=== PATIENT | female | born 1955 | race Caucasian/White ===

== ENCOUNTER → 2018-05-30 09:20 | Outpatient (CLI) | payer MEDICARE, SELFPAY ==
[2018-05-30 10:46] LABS: Vitamin B12 708 pg/mL (211-911); Vitamin D,25 Hydroxy 43.8 ng/mL (29.95-100.01)
[2018-05-30 11:05] LABS: ALB/GLOB Ratio 1.3 RATIO (0.9-2.4); AST(SGOT) 28 U/L (15-37); Alanine Aminotransfer ALT/SGPT 40 U/L (13-56); Albumin, Serum 4.1 g/dL (3.2-5.0); Alkaline Phosphatase 98 U/L (45-117); Anion Gap 7 (5-15); BUN 13 mg/dL (7-18); BUN/Creat Ratio 20.7 RATIO (10-20); Calcium,Total 8.8 mg/dL (8.5-10.1); Chloride 105 mmol/L (98-107); Cholesterol 215 mg/dL (200); Creatinine, Serum 0.63 mg/dL (0.55-1.02); EST Glomerular Filtration Rate 102 mL/min (>60); Est Glom Filt Rate - Afr Amer 124 mL/min (>60); Globulin 3.2 g/dL (2.2-4.2); Glucose 107 mg/dL (74-106); High Density Lipoprotein 44 mg/dL; Potassium 4.1 mmol/L (3.5-5.1); Protein, Total 7.3 g/dL (6.4-8.2); Sodium Level 140 mmol/L (136-145); Thyroid Stim Hormone (TSH) 2.15 uIU/mL (0.358-3.74); Triglycerides 347 mg/dL; Very Low Density Lipoprotein 69 mg/dL (5-40)
== END ==
PROVIDERS: Family Provider Family Medicine; PCP Family Medicine; Referring Provider Family Medicine; Visit Provider Family Medicine
DX: I10 Essential (primary) hypertension (principal); R53.83 Other fatigue; Z13.21 Encounter for screening for nutritional disorder
CPT/HCPCS: 36415; 80053; 80061; 82306; 82607; 84443

== ENCOUNTER → 2019-03-12 08:52 | Outpatient (CLI) | payer OTHER, SELFPAY ==
[2019-03-12 10:15] LABS: Absolute Lymphocyte Count 1.88 X10^3/uL (0.83-4.51); Absolute Neutrophil Count 6.1 X10^3/uL (2.0-7.7); Basophil# 0.04 X10^3/uL; Basophil% 0.4 % (0-1); Eosinophil# 0.42 X10^3/uL; Eosinophils% 4.7 % (0-5); Erythrocyte Sedimentation Rate 11 mm/hr (0-30); Hematocrit 42.8 % (37-47); Hemoglobin 14.4 g/dL (12.0-15.0); Lymphocyte # 1.88 X10^3/ul (4.0); Mean Corp Hgb Conc 33.6 g/dL (32-36); Mean Corpuscular Hgb 30.9 pg (27.0-32.0); Mean Corpuscular Volume 91.8 fL (81-99); Mean Platelet Vol. 9.8 fl (6.2-12.0); Monocyte# 0.46 X10^3/uL; Monocyte% 5.1 % (0-10); NRBC Flagged by Analyzer 0 % (0-5); Neutrophil # 6.09 X10^3/uL (2.7-7.7); Platelet Count 302 K/mm3 (150-450); RBC Distribution Width CV 13.2 % (11.6-14.6); RBC Distribution Width SD 44.9 fl (35.1-43.9); Red Blood Count 4.66 M/mm3 (4.2-5.4)
[2019-03-12 10:35] LABS: ALB/GLOB Ratio 1.1 RATIO (0.9-2.4); AST(SGOT) 40 U/L (15-37); Alanine Aminotransfer ALT/SGPT 54 U/L (13-56); Alkaline Phosphatase 98 U/L (45-117); Anion Gap 4 (5-15); BUN 12 mg/dL (7-18); BUN/Creat Ratio 16.5 RATIO (10-20); Calcium,Total 9.3 mg/dL (8.5-10.1); Chloride 104 mmol/L (98-107); Creatinine, Serum 0.73 mg/dL (0.55-1.02); EST Glomerular Filtration Rate 86 mL/min (>60); Est Glom Filt Rate - Afr Amer 104 mL/min (>60); Globulin 3.7 g/dL (2.2-4.2); Glucose 108 mg/dL (74-106); Potassium 3.9 mmol/L (3.5-5.1); Protein, Total 7.7 g/dL (6.4-8.2); Sodium Level 138 mmol/L (136-145); Thyroid Stim Hormone (TSH) 2.14 uIU/mL (0.358-3.74)
[2019-03-13 16:08] LABS: Endomysial Antibody IgA Negative (Negative); Immunoglobulin A 240 mg/dL (87-352)
[2019-03-13 18:34] LABS: Deamidated Gliadin IgA 5 units (0-19); Deamidated Gliadin IgG 2 units (0-19); H. Pylori Antibody (IgG) 4.17 (0.00-0.79); t-Transglutaminase IgA <2 U/mL (0-3)
[2019-03-15 03:06] LABS: Beef <0.10 kU/L (Class 0); Corn <0.10 kU/L (Class 0); Egg, Whole <0.10 kU/L (Class 0); Milk (Cow) <0.10 kU/L (Class 0); Peanut <0.10 kU/L (Class 0); Pork <0.10 kU/L (Class 0); Soybean <0.10 kU/L (Class 0); Wheat <0.10 kU/L (Class 0)
[2019-03-15 08:09] LABS: Chocolate <0.10 kU/L (Class 0)
== END ==
PROVIDERS: Family Provider Family Medicine; PCP Family Medicine; Visit Provider Family Medicine
DX: K58.9 Irritable bowel syndrome, unspecified (principal); R10.13 Epigastric pain
CPT/HCPCS: 36415; 80053; 82784; 83516; 84443; 85025; 85652; 86003; 86005; 86255; 86677

== ENCOUNTER → 2019-04-02 09:26 | Outpatient (CLI) | payer OTHER, SELFPAY ==
--- NOTE | 2019-04-02 09:34 | RAD_ITS ---
STUDY: X-RAY - RIGHT KNEE REASON FOR EXAM: Female, 63 years old. RIGHT KNEE PAIN AND TROUBLE AMBULATING, PAIN IS WORSE WITH WEIGHTBEARING TECHNIQUE: 4 view(s) of the knee. COMPARISON: None. FINDINGS: Normal visualized distal femur. Normal visualized proximal tibia and fibula. Normal proximal tibiofibular articulation. There is no demonstrated fracture. Normal medial femorotibial compartment. Normal lateral femorotibial compartment. Normal patellofemoral articulation. There is no demonstrated joint effusion. The soft tissue structures are unremarkable. RAD/Knee 4 or More Views IMPRESSION: Normal x-ray examination of the knee. Electronically Signed: Tanner Hoffman MD at 23:57 EST , Service support ,
== END ==
PROVIDERS: PCP Family Medicine; Referring Provider Nurse Practitioner Adult Health; Visit Provider Nurse Practitioner Adult Health
DX: M25.561 Pain in right knee (principal)
CPT/HCPCS: 73564

== ENCOUNTER → 2019-04-03 15:15 | Outpatient (CLI) | payer OTHER, SELFPAY ==
--- NOTE | 2019-04-03 15:31 | VDLE_ITS ---
Reason For Study: pain and swelling RIGHT GSV is normal. CFV is compressible, spontaneous, phasic, competent and demonstrates normal augmentation. FV is compressible, spontaneous, phasic, competent and demonstrates normal augmentation. POP V is compressible, spontaneous, phasic, competent and demonstrates normal augmentation. T/P Trunk is compressible. PTV is compressible. RT PerV is compressible. Hypoechoic area behind the knee measuring .98 x 1.79 cm in short. Area is nonvascular. Procedure Exam performed in department. The exam was diagnostic. A preliminary report was called and/or faxed to Dr. Moran. Interpretation Summary Deep veins of the right lower extremity are patent and compressible segmentally. There is no evidence of right lower extremity deep vein thrombosis. Valvular competence appears intact within the proximal deep venous system on the right . The right great saphenous vein appears patent and compressible segmentally. A non-vascular, hypoechoic structure is noted in the right popliteal space, measuring 0.98 cm x 1.79 cm. This probably represents a popliteal cyst. Clinical correlation is advised. Ordering Physician: Yaz Moran Performed By: Jarrett Vasquez RVT
[2019-04-03 16:17] LABS: Absolute Lymphocyte Count 2.33 X10^3/uL (0.83-4.51); Absolute Neutrophil Count 6.2 X10^3/uL (2.0-7.7); Basophil# 0.07 X10^3/uL; Basophil% 0.7 % (0-1); Eosinophils% 5.2 % (0-5); Hematocrit 41.8 % (37-47); Hemoglobin 14.1 g/dL (12.0-15.0); Lymphocyte # 2.33 X10^3/ul (4.0); Mean Corp Hgb Conc 33.7 g/dL (32-36); Mean Corpuscular Hgb 30.7 pg (27.0-32.0); Mean Corpuscular Volume 91.1 fL (81-99); Monocyte# 0.52 X10^3/uL; Monocyte% 5.4 % (0-10); NRBC Flagged by Analyzer 0 % (0-5); Neutrophil # 6.22 X10^3/uL (2.7-7.7); Neutrophil % 64.2 % (47-70); Platelet Count 303 K/mm3 (150-450); RBC Distribution Width CV 12.9 % (11.6-14.6); RBC Distribution Width SD 42.9 fl (35.1-43.9); Red Blood Count 4.59 M/mm3 (4.2-5.4); White Blood Count 9.7 K/mm3 (4.4-11.0)
[2019-04-03 16:43] LABS: ALB/GLOB Ratio 1.1 RATIO (0.9-2.4); AST(SGOT) 21 U/L (15-37); Alanine Aminotransfer ALT/SGPT 36 U/L (13-56); Alkaline Phosphatase 101 U/L (45-117); Anion Gap 1 (5-15); BUN 12 mg/dL (7-18); BUN/Creat Ratio 17.3 RATIO (10-20); Calcium,Total 9.7 mg/dL (8.5-10.1); Chloride 103 mmol/L (98-107); EST Glomerular Filtration Rate 91 mL/min (>60); Est Glom Filt Rate - Afr Amer 110 mL/min (>60); Globulin 3.7 g/dL (2.2-4.2); Glucose 99 mg/dL (74-106); Potassium 3.8 mmol/L (3.5-5.1); Protein, Total 7.7 g/dL (6.4-8.2); Sodium Level 138 mmol/L (136-145)
== END ==
PROVIDERS: Internal Medicine; PCP Family Medicine; Referring Provider Family Medicine; Visit Provider Family Medicine
DX: M79.661 Pain in right lower leg (principal); M79.89 Other specified soft tissue disorders
CPT/HCPCS: 36415; 80053; 85025; 93971

== ENCOUNTER → 2019-04-13 10:07 | Outpatient (CLI) | payer OTHER, SELFPAY | PROVIDERS: PCP Family Medicine; Referring Provider Family Medicine; Visit Provider Family Medicine | DX: Z00.00 Encounter for general adult medical examination without abnormal findings (principal) ==

== ENCOUNTER → 2019-04-18 10:10 | Outpatient (CLI) | payer OTHER, SELFPAY ==
[2019-04-21 10:41] LABS: H. PYLORI STOOL AG Positive (Negative)
== END ==
PROVIDERS: PCP Family Medicine; Referring Provider Family Medicine; Visit Provider Family Medicine
DX: A04.8 Other specified bacterial intestinal infections (principal)

== ENCOUNTER → 2019-05-21 12:48 | Outpatient (CLI) | payer OTHER, SELFPAY ==
[2019-05-25 13:07] LABS: H. PYLORI STOOL AG Negative (Negative)
== END ==
PROVIDERS: PCP Family Medicine; Referring Provider Family Medicine; Visit Provider Family Medicine
DX: A04.8 Other specified bacterial intestinal infections (principal)

== ENCOUNTER → 2019-10-22 10:56 | Outpatient (CLI) | payer OTHER, SELFPAY ==
--- NOTE | 2019-10-22 11:07 | MRI_ITS ---
STUDY: MRI RIGHT KNEE REASON FOR EXAM: Female, 64 years old. Right knee pain. Fall. Swelling. TECHNIQUE: Standardized fat and water weighted pulse sequences were obtained in all 3 orthogonal planes. COMPARISON: None. FINDINGS: Patellofemoral articulation grade 2 cartilage loss. Lateral compartment grade 3 cartilage loss. Medial compartment grade 2/3 cartilage loss. No acute fracture. No acute dislocation. No acute bone destruction. Lateral meniscus anterior horn degeneration with oblique tear (sagittal image 7 series 4). Medial meniscal degeneration with free edge/undersurface tear (sagittal image 18 series 4) and additional radial tear at the meniscocapsular attachment (sagittal image 19 series 4). Moderate volume joint effusion. Small popliteal cyst. Mild soft tissue swelling. Normal medial collateral ligamentous complex (MCL). Normal distal semimembranosus, gracilis and semitendinosus tendons. Normal proximal tibiofibular articulation. Normal lateral collateral (fibular) ligament. Normal popliteus tendon. Normal biceps femoris tendon. Anterior cruciate ligament degeneration). Normal posterior cruciate ligament (PCL). Normal medial and lateral patellar retinaculum. Quadrant tendon enthesophyte. Normal patellar tendon. Normal Hoffa''s fat pad. MRI/Lower Ext Joint Only (Routine) IMPRESSION: Medial and lateral meniscal tears ACL degeneration Tricompartmental mild/moderate osteoarthritis Moderate volume joint effusion, small popliteal cyst and mild soft tissue swelling Electronically Signed: Taras Vu DO at 12:00 EDT Tel , Service support ,
== END ==
PROVIDERS: PCP Family Medicine; Referring Provider Family Medicine; Visit Provider Family Medicine
DX: M25.561 Pain in right knee (principal)
CPT/HCPCS: 73721

== ENCOUNTER 2019-11-20 07:34 | Day surgery (SDC) | payer OTHER, SELFPAY ==
[2019-11-05 08:24] VITALS: BMI 29.8
[2019-11-20] VITALS (10 sets, daily range): BP systolic 130–148; BP diastolic 63–80; PULSE 75–92; RESP 14–18; TEMP 36.2–37.1; O2SAT 91–100; BMI 30.2
[2019-11-20] MEDS: Lactated Ringers 1,000 ML 100 ML IV ×2 (08:11→11:43)
[2019-11-20] MEDS: Cefazolin 2 GM in 0.9% Normal Saline 100 ML IV (10:22)
[2019-11-20] MEDS: Epinephrine (1 mg/ml) 1 MG/ML VIAL (10:30)
[2019-11-20] MEDS: morphine PF (epidural) 5 MG/10 ML Vial (10:30)
[2019-11-20] MEDS: Bupiv/Epi 0.5% Mpf 30 ML Vial (10:30)
[2019-11-20] MEDS: MethylPREDNISolone Acetate 80 MG/ML Vial (11:00)
[2019-11-20] MEDS: Bupivacaine Mpf 0.5% 30 ML VIAL (11:00)
--- NOTE | 2019-11-20 11:12 | PCM.HP.BLA ---
History and Physical Date of Admission: 11/20/19 Intake Vital Signs 11/05/19 Height 5 ft 6 in 11/05/19 Weight: 185 lb 11/05/19 BMI 29.8 Intake Visit Reasons: RIGHT KNEE Accompanied by: Spouse Is patient in pain?: Yes Pain scale (1-10): 5 Allergies No Known Allergies Allergy (Unverified 11/05/19 08:38) Medications cetirizine 10 mg capsule 10 mg PO DAILY 11/05/19 [History Confirmed 11/05/19] citalopram 20 mg tablet 20 mg PO DAILY 11/05/19 [History Confirmed 11/05/19] diclofenac sodium 75 mg tablet,delayed release 75 mg PO BID 11/05/19 [History Confirmed 11/05/19] lisinopril 40 mg tablet 40 mg PO DAILY 11/05/19 [History Confirmed 11/05/19] ocrelizumab 30 mg/mL intravenous solution mg .ROUTE 11/05/19 [History Confirmed 11/05/19] oxybutynin chloride 5 mg tablet 5 mg PO DAILY 11/05/19 [History Confirmed 11/05/19] Post menopausal: Yes (full hysterectomy) [facility] Medical History (Updated 11/05/19 @ 08:33 by Niesha Chan) HTN (hypertension) (Chronic) Multiple sclerosis (Acute) Surgical History (Updated 11/05/19 @ 08:34 by Niesha Chan) History of hysterectomy (Acute) History of tonsillectomy (Acute) Family History (Updated 11/05/19 @ 08:35 by Niesha Chan) Father Diabetes Hypertension Mother , : 01/2019 Hypertension Social History (Updated 11/05/19 @ 10:[address] Solomon Reyna DO) household members: spouse housing: apartment Smoking Status: Never smoker alcohol intake: never what type of physical activity do you participate in: walking frequency: daily do you feel safe at home: Yes HPI RIGHT KNEE: Details: Parts of this documentation were recorded by a scribe, this documentation accurately reflects the service provided and the decisions made by me, Dr. Solomon Reyna DO 11/05/19 0803. ROBERT DENNY is a 64 year old F here today for pain and swelling in her right knee. Pain is along the medial knee. Patient thinks it may have began years ago d/t impact hitting the floor d/t a boxer they owned. Especially when landing on a sidewalk when walking their boxer, approx 5 years ago. Another fall with the boxer was four years ago. Knee pain wornsened 6 months ago, had imaging which did not show anything. Roughly one year ago, pt had one cortisone injection. Patient had relief for two months with the cortisone injection. Denies surgeries with her bilateral knees. OTC medications are: Tylenol, Advil and Ibuprofen prn. Patient has 21 stairs in their apartment and reports her right knee does give out. Patient wears a compression sleeve, which does help. Recently patient has had imaging done as [facility]. ROS Const Reports frequent falls (not recently) GI Reports system reviewed and no additional complaints, except as docu, Reports incontinent of stools (d/t MS) Reports urinary incontinence (d/t MS) Musc Reports system reviewed and no additional complaints, except as docu, Reports abnormal walking, Reports joint pain, Reports joint swelling, Denies muscle cramps, Reports muscle weakness, Denies numbness, Denies radiating pain into limb, Reports stiffness, Denies tingling Skin/Breast Reports system reviewed and no additional complaints, except as docu, Denies dry skin, Denies redness, Denies lesions, Denies new lesions, Denies non-healing lesions, Denies itching, Denies rash, Denies skin ulcer, Denies sores, Denies wounds Neuro Yes system reviewed and no additional complaints, except as docu, Yes abnormal walking, Yes frequent falls (not recently), Yes lack of coordination, No numbness, No restless legs, No tingling, No tremor(s) Ortho Exam Right Knee Skin/Wound: No erythema, No ecchymosis, No swelling Homans Sign: No Knee ROM: No ROM-Extension -20 to 0 (5), Yes ROM-Flexion 0-140 Examination: Yes Med jt line tenderness, No Lat jt line tenderness, Yes Pain with extention (pain, lacking 5 degrees), No Filiberto's Test, Yes TTP Pes Anserine Stability: NML: Anterior Drawer, NML: Posterior Drawer, NML: Valgus 30, NML: Varus 30 Patella Translation: 1 Apprehension with Lateral Translation: No Patella Grind: No KNEE: Antalgic gait no patellar instability Left Knee Patella Translation: 1 Supplemental Info 10/22/2019 MRI right knee: Grade 2 cartilage wear patellofemoral joint grade 3 lateral compartment grade 2-3 medial compartment, Anterior horn lateral meniscus oblique tear medial meniscus degeneration with free and undersurface tearing in addition its in addition to radial tearModerate joint effusionACL degeneration Assessment & Plan Problems 1. Tear of medial meniscus of right knee, current, unspecified tear type, initial encounter S83.241A 2. Peripheral tear of lateral meniscus of right knee as current injury, initial encounter S83.261A 3. Primary osteoarthritis of right knee M17.11 Plan Personally reviewed pt's MRI from 10/22/2019Does demonstrate medial and lateral meniscal tear and DJD Discussed and educated on several options:Conservative and surgical interventions risk benefits and alternatives reviewed. She does wish to proceed with arthroscopic surgeryAnd understands risk of continued pain secondary to arthritic component. Discussed risk of bleeding infection nerve artery tissue damage need for further surgery continue pain postoperative expected course Patient denies negative effects with her MS medication. Patient's last infusion of Ocrevus was July 2019. Discussed if going the surgical option, sooner rather than later. Discussed getting clearance from Dr. Smith, and Dr. Gómez. Patient would like to proceed with a knee arthroscopy. All questions answered. Patient in agreement of plan. May take Tylenol arthritis four times a day, NSAIDS stop four days before surgery. Discussed 11/20/2019 as a date for surgery if clearance is met by both providers and insurance approval. Surgical consent obtained today. Coding Level of Care Code Off vis,new,level 3 Diagnoses Tear of medial meniscus of right knee, current, unspecified tear type, initial encounter S83.241A ??Encounter type: initial encounter ??Meniscus of knee: medial ??Meniscus tear of knee type: unspecified type ??Tear current or old: current Peripheral tear of lateral meniscus of right knee as current injury, initial encounter S83.261A ??Tear current or old: current ??Encounter type: initial encounter ??Meniscus tear of knee type: peripheral Primary osteoarthritis of right knee M17.11 ??Osteoarthritis type: primary I have re-examined the patient. There are no clinical changes since date of exam Procedure Criteria Procedure Type: Elective COVID Risk Discussion: The surgeon/proceduralist and patient have discussed in detail the risk of exposure to and/or potential harm posed by the COVID-19 virus with having a surgery/procedure at this time versus the risk of delaying the surgery/procedure. It is not possible to know either the risk of delaying the surgery or procedure or chance of getting an infection with perfect accuracy, but a joint decision was made between the patient and the surgeon/proceduralist to proceed at this time with the scheduled surgery/procedure as indicated on the consent form.
--- NOTE | 2019-11-20 11:12 | PCM.DC.ORTHO ---
Discharge Diet: No Restrictions Weight Bearing Status: Weight bearing as tolerated Call your doctor if you observe: Shortness of breath, Chest pain Additional Instructions: Ice and elevate next 72 hours .keep dressing on clean and dry for 48 hours then may remove begin showering daily but do not submerge in tub or pool. After shower may apply Band-Aids . Encourage knee range of motion weightbearing as tolerated, use crutches until confident in knee then may discontinue. No strenuous activity. When not ambulating keep iced and elevated next 72 hours. Call with any questions or concerns. Allergies/Adverse Reactions: Allergies No Known Allergies Allergy (Verified 11/08/19 13:18) Medications to take at Discharge cetirizine 10 mg capsule 10 mg PO DAILY 11/05/19 citalopram 20 mg tablet 20 mg PO DAILY 11/05/19 lisinopril 40 mg tablet 40 mg PO DAILY 11/05/19 ocrelizumab 30 mg/mL intravenous solution 600 mg .ROUTE .Q6MO 11/05/19 oxybutynin chloride 5 mg tablet 5 mg PO DAILY 11/05/19 Acetaminophen [Tylenol Arthritis] 1,300 mg PO BID 11/08/19 Albuterol IH (ProAir) [Proair Hfa (SP)Vent Pts] 1 - 2 puff INHALATION Q6H PRN PRN 11/08/19 Amlodipine [Norvasc] 5 mg PO DAILY 11/08/19 Baclofen [Lioresal] 10 mg PO PRN PRN 11/08/19 Cholecalciferol (Vitamin D3) [Vitamin D3] 15,000 unit PO DAILY 11/08/19 Oxycodone [Oxyir] 5 mg PO Q4H PRN PRN #30 tab 11/20/19 The following prescriptions were given: Oxycodone [Oxyir] 5 mg PO Q4H PRN PRN #30 tab PRN Reason: Pain Score 4-5/10 Transmission Status: Received by [facility] Primary Care Physician: Edgard Smith MD [Primary Care Provider] - Test Results: Test results from this visit will be discussed in further detail at your follow-up appointment, if applicable. Please Follow Up With: Solomon Reyna DO - 2 weeks
--- NOTE | 2019-11-20 11:13 | OP.PCM_ITS ---
Report of Operation Date of Procedure: 11/20/19 Description of Surgical Findings:: Preop diagnosis: Right knee DJD complex tear medial meniscus anterior radial tearing lateral meniscus Postoperative diagnosis: Same plus small tear posterior root lateral meniscus and synovitis grade 3-4 cartilage wear medial lateral and patellofemoral compartments Procedure: Right knee arthroscopic partial medial partial lateral meniscectomy chondroplasty tricompartmental synovectomy Anesthesia: General Estimated blood loss: 5 mL Tourniquet time: 34 minutes 300 mmHg Complications: none Indication for procedure: 64-year-old female with longstanding mechanical symptoms with MRI evidence of medial and lateral meniscus tear and DJD . the patient did wish to proceed with an elective arthroscopic surgery to attempt to alleviate the symptoms. Risk benefits and alternatives of the procedure were reviewed including risk of bleeding infection nerve artery tissue damage need for further surgery continued pain and expected postoperative course. Procedure: The patient was met in the preoperative holding area. The operative extremity was identified by both patient and physician and family and marked. Patient was brought back to the operating room on a wheeled cart and transferred to the operating table in the supine position. Anesthesia was started. A well- padded tourniquet was placed on the operative extremity. A lower extremity leg jiang was secured to the operative extremity. The contralateral extremity was well-padded and the end of the bed was flexed to 90 degrees. The patient was prepped and draped in the usual sterile fashion. A timeout was called to ensure the proper patient, procedure, and extremity were being contemplated. 0.5% Marcaine with epinephrine was injected into the planned incisional areas under the skin only. An Esmarch was used to exsanguinate the extremity and the tourniquet was inflated. An 11 blade scalpel was used to make a stab incision in the anterior lateral portal. The arthroscope was inserted into the intercondylar notch and inflow and outflow tubes were attached. Arthroscopic visualization began. The medial compartment was entered. An 18-gauge spinal needle was used to establish the placement for anterior medial portal. An 11 blade scalpel was used to make a stab incision. Blunt probe was inserted followed by a meniscal probe. Immediately there was noted to be radial and horizontal tearing of the posterior horn and body of the medial meniscus with the use of an shaver and arthroscopic biting instruments partial medial meniscectomy was performed there was noted to be grade 3-4 changes of the medial femoral condyle the ACL was found to be intact. The lateral compartment was entered there was noted to be radial tearing of the anterior horn body and horizontal tearing of the posterior root partial lateral meniscectomy was performed again noted to be grade 3-4 changes of the lateral femoral condyle synovectomy was performed tricompartmentally with the use of arthroscopic biting instruments and martín and ArthroCare wand a partial lateral meniscectomy was performed. The arthroscope was switched to the medial portal to complete the procedure. The medial and lateral gutters were inspected and were free of loose bodies. The patellofemoral joint was inspected grade 3 changes of the patellofemoral compartment lateral patellar tracking was noted. The knee was thoroughly irrigated and drained. An intra-articular injection with 5 cc 0.5% Marcaine plain 2.5 mg of morphine and 40 mg of Depo-Medrol was injected intra- articularly. The arthroscope was removed the portals were closed with 3-0 nylon arthroscopic stitches. Followed by Xeroform 4 x 4's ABDs web roll and an Bakari wrap. The tourniquet was let down and the drapes were removed. All counts were correct. The patient was brought back to the PACU in stable condition.
[2019-11-20] MEDS: oxyCODONE 5 MG Tablet PO (12:50)
== END 2019-11-20 14:27 | disposition home or self-care (01) ==
LOC: SDC 07:34 → AC 07:35
PROVIDERS: Anesthesiology; PCP Family Medicine; Referring Provider Orthopaedic Surgery; Visit Provider Orthopaedic Surgery
PROC: (CPT 29870; principal; 2019-11-20 10:10)
DX: S83.241A Other tear of medial meniscus, current injury, right knee, initial encounter (principal); S83.281A Other tear of lateral meniscus, current injury, right knee, initial encounter; M17.11 Unilateral primary osteoarthritis, right knee; W54.1XXA Struck by dog, initial encounter; Y92.9 Unspecified place or not applicable; Y99.9 Unspecified external cause status; G35 Multiple sclerosis; I10 Essential (primary) hypertension; Z79.899 Other long term (current) drug therapy; Z11.59 Encounter for screening for other viral diseases
CPT/HCPCS: 01400; 29880; 87635; 94640; 97162; C9803; J7120; J2405; U0003

== ENCOUNTER → 2020-01-24 15:55 | Outpatient (CLI) | payer MEDICARE, SELFPAY ==
[2019-12-03 09:01] VITALS: BMI 30.2
== END ==
PROVIDERS: PCP Family Medicine; Visit Provider Family Medicine
DX: Z20.828 Contact with and (suspected) exposure to other viral communicable diseases (principal)
CPT/HCPCS: 87635; U0003

== ENCOUNTER → 2020-02-18 10:07 | Outpatient (CLI) | payer MEDICARE, SELFPAY ==
[2019-12-03 09:01] VITALS: BMI 30.2
--- NOTE | 2020-02-18 10:08 | BI_ITS ---
MAMMOGRAPHY - BILATERAL SCREENING REASON FOR EXAM: Female, 64 years old. Routine annual screening examination. PERTINENT HISTORY: Mother with breast cancer. TECHNIQUE: Digital bilateral breast batsheva (3D mammographic acquisition) in the CC and MLO projections. 2-D mediolateral oblique (MLO) and craniocaudad (CC) views of both breasts were obtained. CAD: Full Field Digital Mammography with Computer Added Detection was performed. COMPARISON: Comparison is made with prior abdomen examination dated 02/15/2019. FINDINGS: Breast Composition: There are scattered areas of fibroglandular density. There are no dominant masses or suspicious calcifications. No other significant abnormalities are identified. There has been no significant change since the prior study. BI/SCREEN MAMM (CAD) W/BATSHEVA BILAT IMPRESSION: Stable bilateral screening mammogram. Yearly follow-up mammogram recommended. (A) ASSESSMENT CATEGORY: BIRADS Category 1: Negative. A letter regarding these results will be sent to the patient by the facility within 30 days. Approximately 10% of breast cancers are not detected by mammography. A normal mammogram should not delay biopsy of a clinically suspicious abnormality. [id number] Electronically Signed: Jefferson Guzman, at 12:41 EST , Service support ,
== END ==
PROVIDERS: PCP Family Medicine; Referring Provider Family Medicine; Visit Provider Family Medicine
DX: Z12.31 Encounter for screening mammogram for malignant neoplasm of breast (principal); Z79.899 Other long term (current) drug therapy
CPT/HCPCS: 36415; 77063; 77067; 80053; 85025

== ENCOUNTER → 2020-02-18 11:11 | Outpatient (CLI) | payer MEDICARE, SELFPAY ==
[2019-12-03 09:01] VITALS: BMI 30.2
[2020-02-18 12:09] LABS: Absolute Lymphocyte Count 2.16 X10^3/uL (0.83-4.51); Absolute Neutrophil Count 5.9 X10^3/uL (2.0-7.7); Basophil# 0.06 X10^3/uL; Basophil% 0.7 % (0-1); Eosinophil# 0.35 X10^3/uL; Eosinophils% 3.9 % (0-5); Hemoglobin 13.7 g/dL (12.0-15.0); Lymphocyte # 2.16 X10^3/ul (4.0); Lymphocyte % 24.3 % (19-41); Mean Corp Hgb Conc 32.6 g/dL (32-36); Mean Corpuscular Volume 88.8 fL (81-99); Mean Platelet Vol. 9.5 fl (6.2-12.0); Monocyte# 0.41 X10^3/uL; Monocyte% 4.6 % (0-10); NRBC Flagged by Analyzer 0 % (0-5); Neutrophil # 5.87 X10^3/uL (2.7-7.7); Neutrophil % 65.9 % (47-70); Platelet Count 328 K/mm3 (150-450); RBC Distribution Width CV 13.5 % (11.6-14.6); RBC Distribution Width SD 44.1 fl (35.1-43.9); Red Blood Count 4.73 M/mm3 (4.2-5.4); White Blood Count 8.9 K/mm3 (4.4-11.0)
[2020-02-18 12:47] LABS: AST(SGOT) 33 U/L (15-37); Alanine Aminotransfer ALT/SGPT 34 U/L (13-56); Albumin, Serum 3.9 g/dL (3.2-5.0); Alkaline Phosphatase 103 U/L (45-117); Anion Gap 3 (5-15); BUN 12 mg/dL (7-18); BUN/Creat Ratio 16.6 RATIO (10-20); Calcium,Total 9.3 mg/dL (8.5-10.1); Chloride 105 mmol/L (98-107); Creatinine, Serum 0.72 mg/dL (0.55-1.02); EST Glomerular Filtration Rate 87 mL/min (>60); Est Glom Filt Rate - Afr Amer 105 mL/min (>60); Globulin 3.8 g/dL (2.2-4.2); Glucose 100 mg/dL (74-106); Potassium 4.1 mmol/L (3.5-5.1); Protein, Total 7.7 g/dL (6.4-8.2); Sodium Level 138 mmol/L (136-145)
== END ==
PROVIDERS: PCP Family Medicine
DX: Z79.899 Other long term (current) drug therapy (principal)
CPT/HCPCS: 36415; 80053; 85025

== ENCOUNTER → 2020-03-12 10:10 | Outpatient (CLI) | payer MEDICARE, SELFPAY ==
[2019-12-03 09:01] VITALS: BMI 30.2
[2020-03-14 08:16] LABS: Immunoglobulin A 217 mg/dL (87-352); Immunoglobulin G 607 mg/dL (586-1602); Immunoglobulin M 94 mg/dL (26-217)
[2020-03-14 08:24] LABS: Immunoglobulin E 3 IU/mL (6-495)
== END ==
PROVIDERS: PCP Family Medicine
DX: Z79.899 Other long term (current) drug therapy (principal)
CPT/HCPCS: 36415; 82784; 82785

== ENCOUNTER → 2020-06-05 09:59 | Outpatient (CLI) | payer MEDICARE, SELFPAY ==
[2019-12-03 09:01] VITALS: BMI 30.2
[2020-06-05 12:22] LABS: Hematocrit 42.5 % (37-47); Hemoglobin 14.1 g/dL (12.0-15.0); Mean Corp Hgb Conc 33.2 g/dL (32-36); Mean Corpuscular Hgb 29.8 pg (27.0-32.0); Mean Corpuscular Volume 89.9 fL (81-99); Mean Platelet Vol. 9.9 fl (6.2-12.0); Platelet Count 357 K/mm3 (150-450); RBC Distribution Width SD 46.4 fl (35.1-43.9); Red Blood Count 4.73 M/mm3 (4.2-5.4); White Blood Count 8.1 K/mm3 (4.4-11.0)
[2020-06-05 12:42] LABS: Vitamin D,25 Hydroxy 78.6 ng/mL
[2020-06-05 12:56] LABS: AST(SGOT) 20 U/L (15-37); Alanine Aminotransfer ALT/SGPT 26 U/L (13-56); Albumin, Serum 3.8 g/dL (3.2-5.0); Alkaline Phosphatase 102 U/L (45-117); Anion Gap 8 (5-15); BUN 8 mg/dL (7-18); BUN/Creat Ratio 12.9 RATIO (10-20); Chloride 103 mmol/L (98-107); Cholesterol 223 mg/dL (200); Creatinine, Serum 0.62 mg/dL (0.55-1.02); EST Glomerular Filtration Rate 103 mL/min (>60); Est Glom Filt Rate - Afr Amer 124 mL/min (>60); Globulin 3.7 g/dL (2.2-4.2); Glucose 107 mg/dL (74-106); High Density Lipoprotein 47 mg/dL; Potassium 3.9 mmol/L (3.5-5.1); Protein, Total 7.5 g/dL (6.4-8.2); Sodium Level 139 mmol/L (136-145); Thyroid Stim Hormone (TSH) 1.99 uIU/mL (0.358-3.74); Triglycerides 241 mg/dL; Very Low Density Lipoprotein 48 mg/dL (5-40)
== END ==
PROVIDERS: PCP Family Medicine; Referring Provider Family Medicine; Visit Provider Family Medicine
DX: G35 Multiple sclerosis (principal); I10 Essential (primary) hypertension
CPT/HCPCS: 36415; 80053; 80061; 82306; 84443; 85027

== ENCOUNTER → 2020-08-25 09:20 | Outpatient (CLI) | payer MEDICARE, SELFPAY ==
[2019-12-03 09:01] VITALS: BMI 30.2
[2020-08-25 10:05] LABS: Absolute Lymphocyte Count 1.85 X10^3/uL (0.83-4.51); Absolute Neutrophil Count 5.1 X10^3/uL (2.0-7.7); Basophil# 0.06 X10^3/uL; Basophil% 0.8 % (0-1); Eosinophil# 0.23 X10^3/uL; Hematocrit 42.2 % (37-47); Hemoglobin 13.8 g/dL (12.0-15.0); Lymphocyte # 1.85 X10^3/ul (0.83-4.51); Lymphocyte % 24.2 % (19-41); Mean Corp Hgb Conc 32.7 g/dL (32-36); Mean Corpuscular Volume 88.7 fL (81-99); Mean Platelet Vol. 9.8 fl (6.2-12.0); Monocyte# 0.38 X10^3/uL; NRBC Flagged by Analyzer 0 % (0-5); Neutrophil # 5.09 X10^3/uL (2.7-7.7); Neutrophil % 66.5 % (47-70); Platelet Count 320 K/mm3 (150-450); RBC Distribution Width CV 13.4 % (11.6-14.6); RBC Distribution Width SD 43.8 fl (35.1-43.9); Red Blood Count 4.76 M/mm3 (4.2-5.4); White Blood Count 7.7 K/mm3 (4.4-11.0)
[2020-08-25 10:57] LABS: AST(SGOT) 19 U/L (15-37); Alanine Aminotransfer ALT/SGPT 27 U/L (13-56); Albumin, Serum 3.8 g/dL (3.2-5.0); Alkaline Phosphatase 95 U/L (45-117); Anion Gap 7 (5-15); BUN 10 mg/dL (7-18); BUN/Creat Ratio 14.4 RATIO (10-20); Calcium,Total 9.2 mg/dL (8.5-10.1); Chloride 100 mmol/L (98-107); EST Glomerular Filtration Rate 90 mL/min (>60); Est Glom Filt Rate - Afr Amer 109 mL/min (>60); Globulin 3.7 g/dL (2.2-4.2); Glucose 106 mg/dL (74-106); Protein, Total 7.5 g/dL (6.4-8.2); Sodium Level 138 mmol/L (136-145)
[2020-08-26 05:07] LABS: Immunoglobulin A 232 mg/dL (87-352); Immunoglobulin G 623 mg/dL (586-1602)
[2020-08-26 10:27] LABS: Immunoglobulin M 95 mg/dL (26-217)
== END ==
PROVIDERS: PCP Family Medicine
DX: Z79.899 Other long term (current) drug therapy (principal)
CPT/HCPCS: 36415; 80053; 82784; 85025

== ENCOUNTER → 2020-10-01 17:39 | Outpatient (CLI) | payer MEDICARE, SELFPAY ==
[2019-12-03 09:01] VITALS: BMI 30.2
[2020-10-01 19:06] LABS: Probe Check PASS; Specimen Processing Control PASS
== END ==
PROVIDERS: PCP Family Medicine; Visit Provider Family Medicine
DX: R05 Cough (principal)
CPT/HCPCS: 87635; U0005; U0003

== ENCOUNTER → 2021-01-26 08:40 | Outpatient (CLI) | payer MEDICARE, SELFPAY ==
[2021-01-26 10:12] LABS: Hematocrit 41.9 % (37-47); Hemoglobin 14.1 g/dL (12.0-15.0); Mean Corp Hgb Conc 33.7 g/dL (32-36); Mean Corpuscular Hgb 29.7 pg (27.0-32.0); Mean Corpuscular Volume 88.4 fL (81-99); Mean Platelet Vol. 9.7 fl (6.2-12.0); Platelet Count 351 K/mm3 (150-450); RBC Distribution Width CV 13.4 % (11.6-14.6); RBC Distribution Width SD 43.8 fl (35.1-43.9); Red Blood Count 4.74 M/mm3 (4.2-5.4); White Blood Count 7.1 K/mm3 (4.4-11.0)
[2021-01-26 10:28] LABS: Vitamin D,25 Hydroxy 81.9 ng/mL
[2021-01-26 10:39] LABS: ALB/GLOB Ratio 0.9 RATIO (0.9-2.4); AST(SGOT) 17 U/L (15-37); Alanine Aminotransfer ALT/SGPT 25 U/L (13-56); Albumin, Serum 3.6 g/dL (3.2-5.0); Alkaline Phosphatase 91 U/L (45-117); Anion Gap 7 (5-15); BUN 11 mg/dL (7-18); BUN/Creat Ratio 14.5 RATIO (10-20); Chloride 103 mmol/L (98-107); Cholesterol 226 mg/dL (200); Creatinine, Serum 0.76 mg/dL (0.55-1.02); EST Glomerular Filtration Rate 81 mL/min (>60); Est Glom Filt Rate - Afr Amer 98 mL/min (>60); Globulin 3.9 g/dL (2.2-4.2); Glucose 113 mg/dL (74-106); High Density Lipoprotein 43 mg/dL; Protein, Total 7.5 g/dL (6.4-8.2); Sodium Level 138 mmol/L (136-145); Thyroid Stim Hormone (TSH) 2.46 uIU/mL (0.358-3.74); Triglycerides 297 mg/dL; Very Low Density Lipoprotein 59 mg/dL (5-40)
[2021-01-26 16:01] LABS: Absolute Lymphocyte Count 1.81 X10^3/uL (0.83-4.51); Absolute Neutrophil Count 4.8 X10^3/uL (2.0-7.7); Basophil# 0.05 X10^3/uL; Basophil% 0.7 % (0-1); Eosinophil# 0.28 X10^3/uL; Eosinophils% 3.8 % (0-5); Lymphocyte # 1.81 X10^3/ul (0.83-4.51); Lymphocyte % 24.7 % (19-41); Monocyte# 0.32 X10^3/uL; Monocyte% 4.4 % (0-10); NRBC Flagged by Analyzer 0 % (0-5); Neutrophil # 4.83 X10^3/uL (2.7-7.7); Neutrophil % 65.7 % (47-70)
[2021-01-28 01:07] LABS: Immunoglobulin A 241 mg/dL (87-352); Immunoglobulin G 603 mg/dL (586-1602)
[2021-01-28 13:35] LABS: Immunoglobulin M 100 mg/dL (26-217)
== END ==
PROVIDERS: PCP Family Medicine; Visit Provider Family Medicine
DX: G35 Multiple sclerosis (principal); I10 Essential (primary) hypertension; Z79.899 Other long term (current) drug therapy
CPT/HCPCS: 80053; 80061; 82306; 82784; 84443; 85025; 85027

== ENCOUNTER → 2021-02-26 10:20 | Outpatient (CLI) | payer MEDICARE, SELFPAY ==
--- NOTE | 2021-02-26 10:22 | BI_ITS ---
MAMMOGRAPHY - BILATERAL SCREENING REASON FOR EXAM: Female, 65 years old. Routine annual screening examination. PERTINENT HISTORY: Mother with breast cancer. TECHNIQUE: Digital bilateral breast batsheva (3D mammographic acquisition) in the CC and MLO projections. 2-D mediolateral oblique (MLO) and craniocaudad (CC) views of both breasts were obtained. CAD: Full Field Digital Mammography with Computer Added Detection was performed. COMPARISON: Comparison is made with prior study dated 02/18/2020. FINDINGS: Breast Composition: There are scattered areas of fibroglandular density. There are no dominant masses or suspicious calcifications. No other significant abnormalities are identified. There has been no significant change since the prior study. BI/SCRN MAMM (CAD)W/BATSHEVA BILAT IMPRESSION: Stable bilateral screening mammogram. Yearly follow-up mammogram recommended. (A) ASSESSMENT CATEGORY: BIRADS Category 1: Negative. A letter regarding these results will be sent to the patient by the facility within 30 days. Approximately 10% of breast cancers are not detected by mammography. A normal mammogram should not delay biopsy of a clinically suspicious abnormality. [id number] Electronically Signed: Jefferson Guzman MD at 11:17 EST , Service support ,
== END ==
PROVIDERS: PCP Family Medicine; Referring Provider Family Medicine; Visit Provider Family Medicine
DX: Z12.31 Encounter for screening mammogram for malignant neoplasm of breast (principal)
CPT/HCPCS: 77063; 77067

== ENCOUNTER → 2021-03-05 16:54 | Outpatient (CLI) | payer MEDICARE, SELFPAY ==
--- NOTE | 2021-03-05 16:57 | RAD_ITS ---
STUDY: XR Wrist Min 3 Views REASON FOR EXAM: Female, 65 years old. PAIN TECHNIQUE: XR Wrist Min 3 Views COMPARISON: None. FINDINGS: There are no acute findings of the visualized distal radius and ulna. There is degenerative arthrosis of the radiocarpal articulation. Normal distal radioulnar articulation. Normal carpal bones. Normal carpal articulations. There is degenerative arthrosis of the carpometacarpal articulation of the thumb. Normal second through fifth carpometacarpal articulations. There are no acute findings of the visualized metacarpal bones. The soft tissue structures are unremarkable. RAD/Wrist min 3 Views IMPRESSION: There is degenerative arthrosis of the carpometacarpal articulation of the thumb. There is degenerative arthrosis of the radiocarpal articulation. Electronically Signed: Castro Shin MD at 22:15 EST , Service support ,
== END ==
PROVIDERS: PCP Family Medicine; Referring Provider Family Medicine; Visit Provider Family Medicine
DX: M79.642 Pain in left hand (principal)
CPT/HCPCS: 73110

== ENCOUNTER → 2021-03-12 | Outpatient (CLI) | payer MEDICARE, SELFPAY | END | disposition home or self-care (01) | LOC: LABSPEC 16:04 | PROVIDERS: PCP Family Medicine; Visit Provider Family Medicine | DX: R69 Illness, unspecified (principal) ==

== ENCOUNTER → 2021-07-28 | Outpatient (CLI) | payer MEDICARE, SELFPAY ==
[2021-07-28 10:16] LABS: Absolute Lymphocyte Count 2.12 X10^3/uL (0.83-4.51); Absolute Neutrophil Count 5.9 X10^3/uL (2.0-7.7); Basophil# 0.06 X10^3/uL; Basophil% 0.7 % (0-1); Eosinophil# 0.28 X10^3/uL; Eosinophils% 3.1 % (0-5); Hematocrit 38.3 % (37-47); Hemoglobin 12.9 g/dL (12.0-15.0); Lymphocyte # 2.12 X10^3/ul (0.83-4.51); Lymphocyte % 23.8 % (19-41); Mean Corp Hgb Conc 33.7 g/dL (32-36); Mean Corpuscular Hgb 30.4 pg (27.0-32.0); Mean Corpuscular Volume 90.3 fL (81-99); Mean Platelet Vol. 9.9 fl (6.2-12.0); Monocyte# 0.47 X10^3/uL; Monocyte% 5.3 % (0-10); NRBC Flagged by Analyzer 0 % (0-5); Neutrophil % 66.2 % (47-70); Platelet Count 333 K/mm3 (150-450); RBC Distribution Width CV 13.8 % (11.6-14.6); RBC Distribution Width SD 45.8 fl (35.1-43.9); Red Blood Count 4.24 M/mm3 (4.2-5.4); White Blood Count 8.9 K/mm3 (4.4-11.0)
[2021-07-28 10:34] LABS: ALB/GLOB Ratio 1.2 RATIO (0.9-2.4); AST(SGOT) 12 U/L (15-37); Alanine Aminotransfer ALT/SGPT 18 U/L (13-56); Albumin, Serum 3.8 g/dL (3.2-5.0); Alkaline Phosphatase 79 U/L (45-117); Anion Gap 5 (5-15); BUN 14 mg/dL (7-18); BUN/Creat Ratio 20.8 RATIO (10-20); Chloride 104 mmol/L (98-107); Creatinine, Serum 0.67 mg/dL (0.55-1.02); EST Glomerular Filtration Rate 94 mL/min (>60); Est Glom Filt Rate - Afr Amer 113 mL/min (>60); Globulin 3.3 g/dL (2.2-4.2); Glucose 107 mg/dL (74-106); Potassium 4.1 mmol/L (3.5-5.1); Protein, Total 7.1 g/dL (6.4-8.2); Sodium Level 138 mmol/L (136-145)
[2021-07-29 12:09] LABS: Immunoglobulin A 193 mg/dL (87-352); Immunoglobulin G 550 mg/dL (586-1602)
[2021-07-29 13:32] LABS: Immunoglobulin M 78 mg/dL (26-217)
== END | disposition home or self-care (01) ==
LOC: MFPLAB 08:49
PROVIDERS: PCP Family Medicine; Referring Provider Family Medicine; Visit Provider Nurse Practitioner Gerontology
DX: Z79.899 Other long term (current) drug therapy (principal)
CPT/HCPCS: 36415; 80053; 82784; 85025

== ENCOUNTER 2021-12-06 17:28 | Emergency (ER) | payer MEDICARE, SELFPAY ==
[2021-12-06 17:29] VITALS: BP 170/78; PULSE 51; RESP 16; TEMP 35.5; O2SAT 100; BMI 29.8
--- NOTE | 2021-12-06 17:48 | RAD_ITS ---
STUDY: X-RAY - LEFT KNEE REASON FOR EXAM: Female, 66 years old. Pain TECHNIQUE: 4 view(s) of the knee. COMPARISON: None. FINDINGS: Normal visualized distal femur. Normal visualized proximal tibia and fibula. Normal proximal tibiofibular articulation. There is no demonstrated fracture. There is mild degenerative arthrosis of the medial femorotibial compartment. Normal lateral femorotibial compartment. There is mild degenerative arthrosis of the patellofemoral articulation. Degenerative spur of the superior aspect of the patella. There is no demonstrated joint effusion. The soft tissue structures are unremarkable. RAD/Knee 4 or More Views IMPRESSION: Mild degenerative arthrosis. Electronically Signed: Ignacio Hatfield MD at 18:09 EDT ,
--- NOTE | 2021-12-06 17:49 | EDS_ITS ---
HPI History of Present Illness HPI Narrative: Atraumatic left knee pain today. No prior history. No surgery. No injury. Chief Complaint: Lower Extremity Injury Informant: patient and spouse/S.O. Occured/Mechanism Mechanism/Context: No injury and No blunt trauma Onset/Context/Timing Onset: Today Context: Gradual Onset Timing: Intermittent Quality of Pain: Aching Current Severity: Mild Maximum Severity: Mild Associated Symptoms Associated Symptoms: Negative for Parasthesia, Weakness or Loss of Funtion Narrative Narrative: 66-year-old female history of hypertension and MS. Today was at the baseball game. Been sitting there and a cold. Did a lot of walking yesterday. Says she developed knee discomfort. It is worse to fully extend her leg or bear weight. Denies any fever or swelling. No calf pain or swelling. No history of DVT or PE. No recent travel, surgery or immobilization. She is never had trouble with her left knee or surgery to it. Prior similar symptoms: No Recent Illness/Hospitalization: No [facility] Medical History HTN (hypertension) Multiple sclerosis Home Medications cetirizine 10 mg capsule (Zyrtec) 10 mg PO DAILY 11/05/19 [History Last Taken Unknown] citalopram 20 mg tablet 20 mg PO DAILY 11/05/19 [History Last Taken Unknown] lisinopril 40 mg tablet 40 mg PO DAILY 11/05/19 [History Last Taken 11/20/19 06:30 40 MG] ocrelizumab 30 mg/mL intravenous solution (Ocrevus) 600 mg .Route .Q6MO 11/05/19 [History Last Taken Unknown] oxybutynin chloride 5 mg tablet 5 mg PO DAILY 11/05/19 [History Last Taken Unknown] Cholecalciferol (Vitamin D3) [Vitamin D3] 15,000 unit PO DAILY 11/08/19 [History Last Taken Unknown] acetaminophen 650 mg tablet,extended release 1,300 mg PO BID 11/08/19 [History Last Taken Unknown] albuterol sulfate 90 mcg/actuation aerosol inhaler 1 - 2 puff inhalation Q6H PRN PRN Asthma 11/08/19 [History Last Taken 11/20/19 06:30 1 - 2 PUFF] amlodipine 5 mg tablet 5 mg PO DAILY 11/08/19 [History Last Taken 11/20/19 06:30 5 MG] baclofen 10 mg tablet 10 mg PO PRN PRN Pain Or Fever 11/08/19 [History Last Taken Unknown] oxycodone 5 mg tablet 5 mg PO Q4H PRN PRN Pain Score 4-5/10 #30 tabs 11/20/19 [Rx Last Taken Unknown] meloxicam 15 mg tablet 15 mg PO DAILY #30 tabs 12/31/19 [Rx Last Taken Unknown] Allergy/AdvReac Type Severity Reaction Status Date / Time No Known Allergies Allergy Verified 12/06/21 17:28 Family History Father Diabetes Hypertension Mother , : 01/2019 Hypertension Surgical History History of hysterectomy History of tonsillectomy Social History household members: spouse housing: apartment Smoking Status: Never smoker alcohol intake: never what type of physical activity do you participate in: walking frequency: daily do you feel safe at home: Yes ROS ROS ED ROS Narrative Denies recent illness. Review of Systems ROS Unobtainable: Denies due to encephalopathy Constitutional Constitutional ED: Denies chills or fever(s) Eyes Eyes: Denies blurry vision ENT ENT ED: Denies ear pain Cardiovascular Cardiovascular: Denies chest pain Respiratory/Chest Respiratory/Chest: Denies cough or dyspnea Gastrointestinal Gastrointestinal: Denies abdominal pain Genitourinary Genitourinary ED: Denies dysuria or hematuria Musculoskeletal Musculoskeletal: Denies arthralgias Integumentary Denies abscess or Abrasions Neurologic Neurologic: Denies headache(s) Psychiatric Psychiatric: Denies anxiety Endocrine Endocrinology: Denies polydipsia Hematologic/Lymphatic Hematologic/Lymphatic: Denies easy bleeding Allergic/Immunologic Allergic/Immunologic ED: Denies mouth swelling or tongue swelling EXAM Physical Exam Narrative Exam Narrative: See [id number] female no acute distress. Vital signs stable afebrile. HEENT exam unremarkable. Lungs are clear. Heart regular rhythm rate about 55 no murmur. Abdomen soft nontender. Moving all 4 extremities. Neurovascularly intact. Looking at the left knee it appears normal. There is no swelling or redness. No warmth. No signs of septic joint. She has full flexion extension of the left knee. Also left hip and ankle. Dorsi plantarflexion intact. Normal DP pulse. The knee itself again no swelling. ACL and PCL are intact. As are the LCL and MCL. No effusion. No warmth. No septic joint. She can lift her leg off the bed proving her extensor mechanism is intact. Otherwise exam is unremarkable. Const Vital Signs: 12/06/21 17:29 Temperature 96 F L Temperature Source Temporal Pulse Rate 51 L Respiratory Rate 16 Blood Pressure 170/78 H Blood Pressure Mean 108 Pulse Ox 100 Oxygen Delivery Method Room Air Positive well nourished and well developed; Negative for cachectic, contractures or unkempt General Appearance ED: well developed and NAD; Negative for unkempt, cachectic, contractures or other Nutritional Appearance: Negative for cachectic HEENT Reports moist mucous membranes; Denies other normocephalic and atraumatic; Negative for trauma, tenderness or other Eyes PERRL General Eye ED: Negative for other Neck full ROM and supple Thyroid: Negative for tender or other Lymph Lymphatic: other Chest Wall inspection of chest normal and palpation of chest normal Chest: Negative for other Resp normal respiratory effort, no retractions and clear to auscultation bilaterally Effort and Inspection: Negative for pain with movement Auscultation: Negative for rales, rhonchi or wheezes Cardio regular rate, regular rhythm, S1 normal heart sound, S2 normal heart sound and no murmurs Rate: Negative for bradycardia or tachycardic Rhythm: Negative for abnormal rhythm Bruits: Negative for other GI non-tender, non-distended and no masses Inspection: Negative for abdominal distention Auscultation: normoactive bowel sounds Palpation: soft; Negative for tender or guarding Back/Spine no CVA tenderness Extremity normal to inspection and full ROM Extremity Narrative: Left knee is a normal exam. Full flexion extension 180 degrees. No effusion. No redness or warmth. No septic joint. Ligaments intact. Left foot normal dorsi plantar flexion. Normal strength. Normal sensation. Normal DP pulse. Neuro oriented x3, CN's II-XII intact bilaterally, moves all extremities and no sensory deficits noted Motor Exam: strength 5/5 throughout Psych mental status grossly normal Appearance: Negative for unkempt Speech: No other Mood & Affect: Negative for anxious Skin no wounds Lesions: no lesions Rashes: no rashes Trauma: Negative for abrasion MDM MDM MDM Narrative Medical decision making narrative: 66-year-old female atraumatic left knee pain after walking a lot yesterday and sitting at a baseball game today. Denies any falls or trauma. Exam benign. X- ray being obtained. Clinically I think this is either arthritis or possibly a meniscal tear. But there is no effusion at all which would go against a meniscal tear. There is no signs of infection. Repeat exam unchanged. Discussed x-ray results with patient and her . Discharged home. Ice. Motnain. Follow-up with orthopedics, she has seen Dr. Jf Gastelum in the past. If not improving. Radiography Diagnostic Testing: Clinical Impression(s) from Imaging Studies Knee X-Ray 12/06/21 17:48 IMPRESSION: Mild degenerative arthrosis. Electronically Signed: Ignacio Hatfield MD at 18:09 EDT , Left knee x-ray, 4 views, interpreted by myself and the radiologist. Shows mild degenerative arthritis. Mild joint space narrowing. No other acute process. Discharge Plan Triage Chief Complaint: Lower Extremity Injury ED Provider: Edwin Carmichael Dx/Rx/DC Orders Clinical Impression: Acute knee pain, Multiple sclerosis, HTN (hypertension), Arthritis Instructions: What Is Osteoarthritis? Prescriptions: No Action lisinopril 40 mg tablet 40 mg PO DAILY oxybutynin chloride 5 mg tablet 5 mg PO DAILY citalopram 20 mg tablet 20 mg PO DAILY Ocrevus 30 mg/mL solution 600 mg .Route .Q6MO Rx Instructions: infusion for MS, twice a year. Zyrtec 10 mg capsule 10 mg PO DAILY meloxicam 15 mg tablet 15 mg PO DAILY Qty: 30 1RF Rx Instructions: DO not take with any other NSAIDs amlodipine 5 MG tablet 5 mg PO DAILY acetaminophen 650 MG tablet extended release 1,300 mg PO BID baclofen 10 MG tablet 10 mg PO PRN PRN (Reason: Pain Or Fever) Cholecalciferol (Vitamin D3) [Vitamin D3] 5,000 UNIT capsule 15,000 unit PO DAILY albuterol sulfate 1 PUFF inhaler 1 - 2 puff inhalation Q6H PRN PRN (Reason: Asthma) oxycodone 5 MG tablet 5 mg PO Q4H PRN PRN (Reason: Pain Score 4-5/10) Qty: 30 0RF Rx Instructions: 1-2 tabs by mouth every 4 hrs as needed for pain Primary Care Provider: Edgard Smith Referrals: Edgard Smith MD [Primary Care Provider] - As Needed Jf Gastelum DO [Med Staff - Active Staff] - 1-2 Weeks Activity Restrictions/Additional Instructions: Ice to your left knee to decrease pain and swelling. Motrin, and/or ibuprofen/600 mg 2-3 times a day. With food on your stomach. If this is arthritis (improved. If not follow-up with your orthopedic physician Dr. Jf aGstelum. They can always get an MRI as needed. They can also inject the knee with steroids and numbing medication if not improving. Disposition Disposition: Home, Self Care
== END 2021-12-06 18:23 | disposition home or self-care (01) ==
PROVIDERS: Emergency Provider Emergency Medicine; PCP Family Medicine; Visit Provider Emergency Medicine
DX: M25.562 Pain in left knee (principal); G35 Multiple sclerosis; M17.12 Unilateral primary osteoarthritis, left knee; I10 Essential (primary) hypertension
CPT/HCPCS: 73564; 99282

== ENCOUNTER → 2021-12-22 | Outpatient (CLI) | payer MEDICARE, SELFPAY ==
--- NOTE | 2021-12-22 11:43 | MRI_ITS ---
STUDY: MRI LEFT KNEE REASON FOR EXAM: Female, 66 years old. Sharp stabbing pain LEFT knee since 12/06/21 TECHNIQUE: Standardized fat and water weighted pulse sequences were obtained in all 3 orthogonal planes. COMPARISON: X-ray of the left knee dated December 06, 2021 FINDINGS: A moderate size horizontal tear is present in the inner one third aspect of the posterior horn of medial meniscus with extension into the root insertion. Normal anterior horn and body. There is diffuse, less than 50% thickness articular cartilage loss of the medial femorotibial compartment. Normal medial femoral condyle and tibial plateau. Normal medial collateral ligamentous complex (MCL). Normal distal semimembranosus, gracilis and semitendinosus tendons. Normal lateral meniscus. There is diffuse, less than 50% thickness articular cartilage loss of the lateral femorotibial compartment. Normal lateral femoral condyle and tibial plateau. Normal proximal tibiofibular articulation. Normal lateral collateral (fibular) ligament. Normal popliteus tendon. Normal biceps femoris tendon. Normal anterior cruciate ligament (ACL). Normal posterior cruciate ligament (PCL). The patella slightly high riding. There is diffuse, less than 50% thickness articular cartilage loss of the patellar facets. The trochlear groove cartilage is preserved. Normal medial and lateral patellar retinaculum. Normal quadriceps tendon. Mild thickening and intrasubstance increased signal abnormality is present at the origin of the patellar tendon consistent with mild tendinosis. Normal remaining aspects of the patellar tendon Normal Hoffa''s fat pad. A moderate size joint effusion is present. A small August''s cyst is present. The soft tissues are unremarkable. The otherwise visualized osseous structures are unremarkable. MRI/Lower Ext Joint Only (Routine) IMPRESSION: 1. Moderate size tear of the posterior horn of the medial meniscus 2. Mild proximal patellar tendinosis 3. Slightly high riding patella 4. Moderate size joint effusion Electronically Signed: New Gupta MD at 13:40 EDT ,
== END | disposition home or self-care (01) ==
LOC: MRI 11:39
PROVIDERS: PCP Family Medicine; Referring Provider Family Medicine; Visit Provider Family Medicine
DX: M25.569 Pain in unspecified knee (principal)
CPT/HCPCS: 73721

== ENCOUNTER → 2022-01-13 | Outpatient (CLI) | payer MEDICARE, SELFPAY ==
[2022-01-13 10:35] LABS: Absolute Lymphocyte Count 1.61 X10^3/uL (0.83-4.51); Absolute Neutrophil Count 5.4 X10^3/uL (2.0-7.7); Basophil# 0.05 X10^3/uL; Basophil% 0.6 % (0-1); Eosinophil# 0.23 X10^3/uL; Hematocrit 39.2 % (37-47); Hemoglobin 13.2 g/dL (12.0-15.0); Lymphocyte # 1.61 X10^3/ul (0.83-4.51); Lymphocyte % 20.7 % (19-41); Mean Corp Hgb Conc 33.7 g/dL (32-36); Mean Corpuscular Hgb 30.4 pg (27.0-32.0); Mean Corpuscular Volume 90.3 fL (81-99); Mean Platelet Vol. 9.6 fl (6.2-12.0); Monocyte# 0.38 X10^3/uL; Monocyte% 4.9 % (0-10); NRBC Flagged by Analyzer 0 % (0-5); Neutrophil # 5.44 X10^3/uL (2.7-7.7); Neutrophil % 69.8 % (47-70); Platelet Count 294 K/mm3 (150-450); RBC Distribution Width SD 46.5 fl (35.1-43.9); Red Blood Count 4.34 M/mm3 (4.2-5.4); White Blood Count 7.8 K/mm3 (4.4-11.0)
[2022-01-13 10:58] LABS: ALB/GLOB Ratio 1.1 RATIO (0.9-2.4); AST(SGOT) 13 U/L (15-37); Alanine Aminotransfer ALT/SGPT 17 U/L (13-56); Albumin, Serum 3.6 g/dL (3.2-5.0); Alkaline Phosphatase 92 U/L (45-117); Anion Gap 5 (5-15); BUN 10 mg/dL (7-18); BUN/Creat Ratio 15.1 RATIO (10-20); Calcium,Total 8.9 mg/dL (8.5-10.1); Chloride 106 mmol/L (98-107); Creatinine, Serum 0.66 mg/dL (0.55-1.02); EST Glomerular Filtration Rate 95 mL/min (>60); Est Glom Filt Rate - Afr Amer 115 mL/min (>60); Globulin 3.3 g/dL (2.2-4.2); Glucose 170 mg/dL (74-106); Potassium 3.9 mmol/L (3.5-5.1); Protein, Total 6.9 g/dL (6.4-8.2); Sodium Level 140 mmol/L (136-145)
[2022-01-14 05:07] LABS: Immunoglobulin A 186 mg/dL (87-352); Immunoglobulin G 494 mg/dL (586-1602)
[2022-01-15 15:13] LABS: Immunoglobulin M 77 mg/dL (26-217)
== END | disposition home or self-care (01) ==
LOC: MFPLAB 08:43
PROVIDERS: PCP Family Medicine; Referring Provider Family Medicine; Visit Provider Nurse Practitioner Gerontology
DX: Z79.899 Other long term (current) drug therapy (principal)
CPT/HCPCS: 36415; 80053; 82784; 85025

== ENCOUNTER → 2022-03-02 | Outpatient (CLI) | payer MEDICARE, SELFPAY ==
--- NOTE | 2022-03-02 10:36 | BI_ITS ---
MAMMOGRAPHY - BILATERAL SCREENING REASON FOR EXAM: Female, 66 years old. Routine annual screening examination. PERTINENT HISTORY: Mother with breast cancer. TECHNIQUE: Digital bilateral breast batsheva (3D mammographic acquisition) in the CC and MLO projections. 2-D mediolateral oblique (MLO) and craniocaudad (CC) views of both breasts were obtained. CAD: Full Field Digital Mammography with Computer Added Detection was performed. COMPARISON: Mammogram from 02/26/2021, 02/18/2020. FINDINGS: Breast Composition: There are scattered areas of fibroglandular density. There are no dominant masses or suspicious calcifications. No other significant abnormalities are identified. There has been no significant change since the prior study. BI/SCRN MAMM (CAD)W/BATSHEVA BILAT IMPRESSION: Stable bilateral screening mammogram. Yearly follow-up mammogram recommended. (A) ASSESSMENT CATEGORY: BIRADS Category 1: Negative. A letter regarding these results will be sent to the patient by the facility within 30 days. Approximately 10% of breast cancers are not detected by mammography. A normal mammogram should not delay biopsy of a clinically suspicious abnormality. Electronically Signed: Adonay Fernandez, at 9:46 EST ,
== END | disposition home or self-care (01) ==
LOC: OPBI 10:34
PROVIDERS: PCP Family Medicine; Referring Provider Family Medicine; Visit Provider Family Medicine
DX: Z80.3 Family history of malignant neoplasm of breast (principal); Z12.31 Encounter for screening mammogram for malignant neoplasm of breast
CPT/HCPCS: 77063; 77067

== ENCOUNTER 2022-04-06 11:02 | Outpatient (CLI) | payer MEDICARE, SELFPAY ==
[2022-04-07 05:08] LABS: Immunoglobulin A 185 mg/dL (87-352); Immunoglobulin G 557 mg/dL (586-1602)
[2022-04-09 21:25] LABS: Immunoglobulin M 77 mg/dL (26-217)
== END 2022-04-06 23:59 | disposition home or self-care (01) ==
LOC: MTLAB 11:03
PROVIDERS: PCP Family Medicine; Referring Provider Nurse Practitioner Gerontology; Visit Provider Nurse Practitioner Gerontology
DX: Z79.899 Other long term (current) drug therapy (principal)
CPT/HCPCS: 36415; 82784

== ENCOUNTER → 2022-04-08 | Outpatient (CLI) | payer MEDICARE, SELFPAY | END | disposition home or self-care (01) | LOC: LABSPEC 14:55 | PROVIDERS: PCP Family Medicine; Visit Provider Otolaryngology Otolaryngology/Facial Plastic Surgery | DX: J32.9 Chronic sinusitis, unspecified (principal) | CPT/HCPCS: 87070; 87077; 87186; 87205 ==

== ENCOUNTER → 2022-06-15 | Outpatient (CLI) | payer MEDICARE, SELFPAY ==
[2022-06-15 10:12] LABS: Hematocrit 41.1 % (37-47); Hemoglobin 13.7 g/dL (12.0-15.0); Mean Corp Hgb Conc 33.3 g/dL (32-36); Mean Corpuscular Hgb 29.9 pg (27.0-32.0); Mean Corpuscular Volume 89.7 fL (81-99); Mean Platelet Vol. 9.6 fl (6.2-12.0); Platelet Count 327 K/mm3 (150-450); RBC Distribution Width CV 14.2 % (11.6-14.6); RBC Distribution Width SD 46.4 fl (35.1-43.9); Red Blood Count 4.58 M/mm3 (4.2-5.4); White Blood Count 9.2 K/mm3 (4.4-11.0)
[2022-06-15 11:23] LABS: ALB/GLOB Ratio 1.1 RATIO (0.9-2.4); AST(SGOT) 12 U/L (15-37); Alanine Aminotransfer ALT/SGPT 16 U/L (13-56); Albumin, Serum 3.8 g/dL (3.2-5.0); Alkaline Phosphatase 97 U/L (45-117); Anion Gap 2 (5-15); BUN 12 mg/dL (7-18); BUN/Creat Ratio 19.1 RATIO (10-20); Calcium,Total 9.1 mg/dL (8.5-10.1); Chloride 106 mmol/L (98-107); Cholesterol 138 mg/dL (200); Creatinine, Serum 0.63 mg/dL (0.55-1.02); EST Glomerular Filtration Rate 101 mL/min (>60); Est Glom Filt Rate - Afr Amer 122 mL/min (>60); Globulin 3.6 g/dL (2.2-4.2); Glucose 118 mg/dL (74-106); High Density Lipoprotein 43 mg/dL; Protein, Total 7.4 g/dL (6.4-8.2); Sodium Level 136 mmol/L (136-145); Thyroid Stim Hormone (TSH) 2.43 uIU/mL (0.358-3.74); Triglycerides 184 mg/dL; Very Low Density Lipoprotein 37 mg/dL (5-40)
== END | disposition home or self-care (01) ==
LOC: MFPLAB 09:18
PROVIDERS: PCP Family Medicine; Referring Provider Family Medicine; Visit Provider Family Medicine
DX: G35 Multiple sclerosis (principal); R73.03 Prediabetes; E78.5 Hyperlipidemia, unspecified
CPT/HCPCS: 36415; 80053; 80061; 82306; 82533; 84443; 85027

== ENCOUNTER → 2022-06-25 | Outpatient (CLI) | payer MEDICARE, SELFPAY ==
[2022-06-25 12:10] LABS: Absolute Lymphocyte Count 2.02 X10^3/uL (0.83-4.51); Absolute Neutrophil Count 5.6 X10^3/uL (2.0-7.7); Basophil# 0.05 X10^3/uL; Basophil% 0.6 % (0-1); Eosinophil# 0.28 X10^3/uL; Eosinophils% 3.3 % (0-5); Hematocrit 39.6 % (37-47); Hemoglobin 13.1 g/dL (12.0-15.0); Lymphocyte # 2.02 X10^3/ul (0.83-4.51); Lymphocyte % 23.8 % (19-41); Mean Corp Hgb Conc 33.1 g/dL (32-36); Mean Corpuscular Hgb 30.2 pg (27.0-32.0); Mean Corpuscular Volume 91.2 fL (81-99); Mean Platelet Vol. 9.9 fl (6.2-12.0); Monocyte# 0.47 X10^3/uL; Monocyte% 5.5 % (0-10); NRBC Flagged by Analyzer 0 % (0-5); Neutrophil # 5.61 X10^3/uL (2.7-7.7); Platelet Count 314 K/mm3 (150-450); RBC Distribution Width CV 13.6 % (11.6-14.6); RBC Distribution Width SD 45.7 fl (35.1-43.9); Red Blood Count 4.34 M/mm3 (4.2-5.4); White Blood Count 8.5 K/mm3 (4.4-11.0)
[2022-06-25 12:32] LABS: ALB/GLOB Ratio 1.1 RATIO (0.9-2.4); AST(SGOT) 15 U/L (15-37); Alanine Aminotransfer ALT/SGPT 16 U/L (13-56); Albumin, Serum 3.8 g/dL (3.2-5.0); Alkaline Phosphatase 97 U/L (45-117); Anion Gap 4 (5-15); BUN 14 mg/dL (7-18); BUN/Creat Ratio 20.2 RATIO (10-20); Calcium,Total 9.2 mg/dL (8.5-10.1); Chloride 106 mmol/L (98-107); Creatinine, Serum 0.69 mg/dL (0.55-1.02); EST Glomerular Filtration Rate 90 mL/min (>60); Est Glom Filt Rate - Afr Amer 109 mL/min (>60); Globulin 3.4 g/dL (2.2-4.2); Glucose 110 mg/dL (74-106); Potassium 4.4 mmol/L (3.5-5.1); Protein, Total 7.2 g/dL (6.4-8.2); Sodium Level 138 mmol/L (136-145)
[2022-06-26 10:08] LABS: Immunoglobulin A 187 mg/dL (87-352); Immunoglobulin G 550 mg/dL (586-1602); Immunoglobulin M 77 mg/dL (26-217)
== END | disposition home or self-care (01) ==
LOC: MTLAB 10:04
PROVIDERS: PCP Family Medicine; Referring Provider Nurse Practitioner Gerontology; Visit Provider Nurse Practitioner Gerontology
DX: Z79.899 Other long term (current) drug therapy (principal)
CPT/HCPCS: 36415; 80053; 82784; 85025

== ENCOUNTER → 2022-09-15 | Outpatient (CLI) | payer MEDICARE, SELFPAY | END | disposition home or self-care (01) | PROVIDERS: PCP Family Medicine; Referring Provider Otolaryngology Otolaryngology/Facial Plastic Surgery; Visit Provider Otolaryngology Otolaryngology/Facial Plastic Surgery | DX: J34.0 Abscess, furuncle and carbuncle of nose (principal) | CPT/HCPCS: 87070; 87077; 87186; 87205 ==

== ENCOUNTER → 2022-12-14 | Outpatient (CLI) | payer MEDICARE, SELFPAY ==
[2022-12-14 12:13] LABS: Absolute Lymphocyte Count 2.17 X10^3/uL (0.83-4.51); Absolute Neutrophil Count 6.4 X10^3/uL (2.0-7.7); Eosinophil# 0.38 X10^3/uL; Eosinophils% 3.9 % (0-5); Hematocrit 41.5 % (37-47); Hemoglobin 13.7 g/dL (12.0-15.0); Lymphocyte # 2.17 X10^3/ul (0.83-4.51); Lymphocyte % 22.3 % (19-41); Mean Corpuscular Hgb 29.5 pg (27.0-32.0); Mean Corpuscular Volume 89.4 fL (81-99); Monocyte# 0.58 X10^3/uL; NRBC Flagged by Analyzer 0 % (0-5); Neutrophil # 6.42 X10^3/uL (2.7-7.7); Platelet Count 352 K/mm3 (150-450); RBC Distribution Width CV 14.6 % (11.6-14.6); RBC Distribution Width SD 47.8 fl (35.1-43.9); Red Blood Count 4.64 M/mm3 (4.2-5.4); White Blood Count 9.7 K/mm3 (4.4-11.0)
[2022-12-14 12:51] LABS: AST(SGOT) 14 U/L (15-37); Alanine Aminotransfer ALT/SGPT 19 U/L (13-56); Albumin, Serum 3.8 g/dL (3.2-5.0); Alkaline Phosphatase 98 U/L (45-117); Anion Gap 6 (5-15); BUN 13 mg/dL (7-18); BUN/Creat Ratio 20.5 RATIO (10-20); Calcium,Total 9.4 mg/dL (8.5-10.1); Chloride 105 mmol/L (98-107); Creatinine, Serum 0.63 mg/dL (0.55-1.02); EST Glomerular Filtration Rate 100 mL/min (>60); Est Glom Filt Rate - Afr Amer 121 mL/min (>60); Globulin 3.7 g/dL (2.2-4.2); Glucose 103 mg/dL (74-106); Potassium 4.2 mmol/L (3.5-5.1); Protein, Total 7.5 g/dL (6.4-8.2); Sodium Level 141 mmol/L (136-145)
[2022-12-16 21:07] LABS: Immunoglobulin A 186 mg/dL (87-352); Immunoglobulin E < 2 IU/mL (6-495); Immunoglobulin G 546 mg/dL (586-1602); Immunoglobulin M 72 mg/dL (26-217)
== END | disposition home or self-care (01) ==
LOC: MTLAB 10:05
PROVIDERS: PCP Family Medicine; Referring Provider Nurse Practitioner Gerontology; Visit Provider Nurse Practitioner Gerontology
DX: Z79.899 Other long term (current) drug therapy (principal)
CPT/HCPCS: 36415; 80053; 82784; 82785; 85025

== ENCOUNTER → 2023-03-04 | Outpatient (CLI) | payer MEDICARE, SELFPAY ==
--- NOTE | 2023-03-04 08:21 | BI_ITS ---
MAMMOGRAPHY - BILATERAL SCREENING 3-D TOMOSYNTHESIS REASON FOR EXAM: Female, 67 years old. Routine annual screening mammogram. PERTINENT HISTORY: Mother with breast cancer.. TECHNIQUE: 2-D mammograms and 3-D Tomosynthesis of the breast (s) were performed. CAD was performed. COMPARISON: March 02, 2022, February 26, 2021 FINDINGS: The breast composition is composed of scattered fibroglandular density. Stable scattered benign calcifications. No dominant masses, suspicious microcalcifications, asymmetries, skin thickening or nipple retraction. BI/SCRN MAMM (CAD)W/BATSHEVA BILAT IMPRESSION: No interval change and no mammographic signs of malignancy. Routine yearly mammogram recommended. ASSESSMENT CATEGORY: BIRADS Category 2: Benign. A letter regarding these results will be sent to the patient by the facility within 30 days. FOLLOW UP RECOMMENDATION: Yearly follow up mammogram recommended. (A) Approximately 10% of breast cancers are not detected by mammography. A normal mammogram should not delay biopsy of a clinically suspicious abnormality. Electronically Signed: Alexandre Castillo MD at 14:09 EST ,
--- OUTSIDE RECORDS SUMMARY | 2023-03-04 08:52 | XMS RPT_ITS | CCD ---
Author Name Unknown Address [address] [place] [address] Organization [facility] Care Team Providers Care Application Security Architect Name Role Phone KHANG TAVARES Unavailable Unavail able KHANG TAVARES Unavailable Unavail able OLDER, ASHLEY (TRUST VAULT CLERK) Unavailable Unavailable Kelley Garcia MD Primary Care Provider Brook vailable MILLY REDDY, KELLEY J Primary Care Physici an Kelley Garcia MD Primary Care Provider Brook vailable Medications Current Medications Medication Drug Class(es) Dates Sig (Normalized) Sig (Original) [id number] 200 actuat albuterol 0.09 mg/actuat metered dose inhaler (2 sources) beta2-Adrenergic Agonist take 2 puff(s) by inhalation every six hours as needed for wheezing albuterol (PROVENTIL HFA;VENTOLIN HFA) 108 (90 BASE) MCG/ACT inhaler Inhale 2 puffs into the lungs every 6 hours as needed for Wheezing 0 Active onabotulinumtoxina 100 unt injection (2 sources) Acetylcholine Release Inhibitor Start: 6 onabotulinumtoxin A (BOTOX) injection 200 Units 60 actuat budesonide 0.09 mg/actuat dry powder inhaler (2 sources) Corticosteroid Start: 8 take 2 puff(s) by inhalation twice daily budesonide (PULMICORT) 90 MCG/ACT AEPB inhaler Indications: Mild intermittent asthma without complication Inhale 2 puffs into the lungs 2 times daily 1 each 3 03/24/2017 Active cholecalciferol 0.025 mg oral capsule (2 sources) Vitamin D Vitamin D (CHOLECALCIFEROL) 1000 UNITS CAPS capsule Take 1,500 Units by mouth daily 5 days a week 0 Active citalopram 20 mg oral tablet (3 sources) Serotonin Reuptake Inhibitor Start: 7 citalopram 20 mg oral tablet Dose : 20 mg = 1 tab(s), Oral, Daily Start Date: 05/27/16 Status: Ordered Copaxone 40 mg/mL subcutaneous solution (1 source) Start: 7 Copaxone 40 mg/mL subcutaneous solution Dose : 40 mg =, Subcutaneous, Mon/Wed/Fri, # 12 EA Start Date: 05/27/16 Status: Ordered diclofenac sodium 75 mg delayed release oral tablet (2 sources) Nonsteroidal Anti-inflammatory Drug Start: 8 take 1 tablet by mouth twice daily diclofenac (VOLTAREN) 75 MG EC tablet take 1 tablet by mouth twice a day 60 tablet 3 03/21/2017 Active diclofenac sodium 75 mg oral delayed release tablet (1 source) Start: 7 diclofenac sodium 75 mg oral delayed release tablet Dose : 75 mg = 1 tab(s), Oral, BID, PRN as needed for pain Start Date: 05/27/16 Status: Ordered Emollient (CETAPHIL EX) (2 sources) Emollient (CETAP HIL EX) Apply topically 0 Active 1 ml glatiramer acetate 40 mg/ml prefilled syringe (2 sources) Glatiramer Aceta te 40 MG/ML SOSY Inject 40 mg into the skin three times a week 0 Active lisinopril 20 mg oral tablet (2 sources) Angiotensin Converting Enzyme Inhibitor Start: 8 take 1 tablet by mouth once daily lisinopril (PRINIVIL;ZESTRIL) 20 MG tablet Indications: Essential hypertension take 1 tablet by mouth once daily 90 tablet 3 04/18/2017 Active oxybutynin chloride 5 mg oral tablet (3 sources) Cholinergic Muscarinic Antagonist Start: 7 oxybutynin 5 mg oral tablet Dose : 5 mg = 1 tab(s), Oral, qDay, PRN for urinary discomfort Start Date: 05/27/16 Status: Ordered Potassium Chloride (1 source) Start: 7 potassium chloride 8 mEq (600 mg) oral capsule, extended release Dose : 8 mEq = 1 cap(s), Oral, BID, # 10 cap(s), 0 Refill(s) Start Date: 05/27/16 Status: Ordered Completed/Discontinued Medications Medication Drug Class(es) Dates Sig (Normalized) Sig (Original) ciprofloxacin 500 mg oral tablet (1 source) Quinolone Antimicrobial Start: 05-27-2016 End: 06-01-2016 Cipro 500 mg oral tablet Dose : 500 mg = 1 tab(s), Oral, q12h, # 10 tab(s), 0 Refill(s) Start Date: 05/27/16 Stop Date: 06/01/16 Status: Ordered gadobutrol (GADAVIST) injection 8.5 mL (1 source) Start: 09-22-2021 End: 09-22-2021 gadobutrol (GADAVIST) injection 8.5 mL sotrovimab 500 mg in sodium chloride 0.9 % 108 mL IVPB (1 source) Start: 03-16-2021 End: 03-16-2021 sotrovimab 500 mg in sodium chloride 0.9 % 108 mL IVPB Zofran ODT 4 mg oral tablet, disintegrating (1 source) Start: 05-27-2016 End: 05-27-2016 Zofran ODT 4 mg oral tablet, disintegrating Dose : 4 mg = 1 tab(s), Oral, q4hr, PRN Nausea/Vomiting, # 10 tab(s), 0 Refill(s) Start Date: 05/27/16 Stop Date: 05/27/16 Status: Ordered Problems Problem Classification Problem Date Documented Date Episodic/Chronic Asthma (2 sources) Asthma; Translations: [Unspecified asthma, uncomplicated] Onset: 10-17-2014 12-05-2014 Chronic Esophageal disorders (2 sources) Gastroesophageal reflux disease without esophagitis; Translations: [Gastro-esophageal reflux disease without esophagitis] Onset: 04-29-2016 04-29-2016 Chronic Essential hypertension (3 sources) Essential hypertension; Translations: [Essential (primary) hypertension] Onset: 10-17-2014 12-05-2014 Chronic Menopausal disorders (2 sources) Menopausal symptom; Translations: [Menopausal and female climacteric states] Onset: 10-17-2014 10-17-2014 Chronic Mood disorders (2 sources) Depressive disorder; Translations: [Major depressive disorder, single episode, unspecified] Onset: 10-17-2014 10-17-2014 Chronic Multiple sclerosis (3 sources) Multiple sclerosis; Translations: [Multiple sclerosis] Onset: 10-17-2014 10-17-2014 Chronic Other diseases of bladder and urethra (2 sources) Functional disorder of bladder; Translations: [Other neuromuscular dysfunction of bladder] Onset: 10-17-2014 10-17-2014 Chronic Other diseases of bladder and urethra (2 sources) Neurogenic bladder; Translations: [Neuromuscular dysfunction of bladder, unspecified] Onset: 04-03-2015 04-03-2015 Chronic Other eye disorders (1 source) Acquired stenosis of right nasolacrimal duct; Translations: [Acquired stenosis of right nasolacrimal duct] Onset: 06-10-2017 Episodic Other upper respiratory disease (2 sources) Allergic rhinitis; Translations: [Allergic rhinitis, unspecified] Onset: 10-17-2014 12-05-2014 Chronic Prolapse of female genital organs (2 sources) Disorder of rectum; Translations: [Rectocele] Onset: 10-17-2014 10-17-2014 Chronic Results Test Name Value Interpretation Reference Range Facil ity Vital Signs Date Time Vital Sign Value Performing Clinician Faci lity 03-16-2021 09:46-0500 Body temperature 97.5 [degF] Yoan Durham MD Work Phone: [facility] 03-16-2021 09:46-0500 Diastolic blood pressure 67 mm[Hg] Yoan darden MD Work Phone: [facility] 03-16-2021 09:46-0500 Heart rate 60 /min Yoan Durham MD Work Phone: [facility] 03-16-2021 09:46-0500 SaO2% (BldA) [Mass fraction] 96 % Yoan Durham MD Work Phone: [facility] 03-16-2021 09:46-0500 Systolic blood pressure 131 mm[Hg] Yoan kern MD Work Phone: [facility] 03-16-2021 09:13-0500 Respiratory rate 20 /min Yoan Durham MD Work Phone: [facility] Encounters Encounter Date Encounter Type Care Provider Facility Start: 09-22-2021 End: 09-22-2021 Subsequent hospital visit by physician Soo Boyd SUPERVISOR ASSEMBLING - TRUST VAULT CLERK Work Phone: [facility] Procedures Date Procedure Procedure Detail Performing Clinician Abdominal hysterectomy DR RA BOB LANGSTON Tonsillectomy DR YANG ANDREW RDALL Plan of Treatment Date Care Activity Detail Author Start: 03-28-2025 DTaP/Tdap/Td vaccine (2 - Td or Tdap) DTaP/Tdap/Td vaccine (2 - Td or Tdap) [facility] Start: 04-20-2022 Lipid panel [facility] Start: 03-24-2022 Pneumococcal 0-64 ye ars Vaccine (2 of 2 - PPSV23) Pneumococcal 0-64 years Vaccine (2 of 2 - PPSV23) [facility] Start: 11-17-2021 COVID-19 Vaccine (4 - Booster for Moderna series) COVID-19 Vaccine (4 - Booster for Moderna series) [facility] Start: 11-05-2021 Influenza vaccination Flu vaccine (# 1) [facility] Start: 03-26-2021 COVID-19 Vaccine (3 - Booster for Moderna series) COVID-19 Vaccine (3 - Booster for Moderna series) [facility] Start: 02-15-2021 Screening for malign ant neoplasm of breast Breast cancer screen [facility] Start: 11-05-2020 Influenza vaccination Flu vaccine (# 1) [facility] Start: 09-09-2020 Creatinine measurement Creatinine mo nitoring [facility] Start: 09-09-2020 Potassium monitoring Potassium monit oring [facility] Start: 03-24-2018 Pneumococcal 0-64 ye ars Vaccine (2 - PCV) Pneumococcal 0-64 years Vaccine (2 - PCV) [facility] Start: 2006 Shingles Vaccine (1 of 2) Shingles V accine (1 of 2) [facility] Start: 2001 Screening for malign ant neoplasm of colon [facility] Start: 1986 Screening for malign ant neoplasm of cervix [facility] Start: 1977 Screening for malign ant neoplasm of cervix Pap smear [facility] Start: 1974 Hepatitis C screening Hepatitis C sc reen [facility] Start: 09-29-1971 HIV screening HIV screen [facility] Start: 1968 Depression Monitoring Depression Mon itoring [facility] Start: 1956 Hepatitis C screening Hepatitis C sc reen [facility] End: 09-22-2021 MRI BRAIN W WO CONTRAST [facility] Work Phone: Immunizations Immunization Date Immunization Notes Care Provider Fa phani 07-17-2021 COVID-19, MODERNA Booster BLUE border, (age 18y+), IM, 50mcg/0.25mL Soo Boyd SUPERVISOR ASSEMBLING - TRUST VAULT CLERK Work Phone: [facility] Work Phone: 09-23-2020 COVID-19, Moderna, Primary or Immunocompromised, PF, 100mcg/0.5mL Yoan Durham MD Work Phone: [facility] Work Phone: 08-26-2020 COVID-19, Moderna, Primary or Immunocompromised, PF, 100mcg/0.5mL Yoan Durham MD Work Phone: [facility] 03-24-2017 pneumococcal polysaccharide vaccine, 23 valent Yoan Durham MD Work Phone: [facility] Work Phone: 11-05-2016 influenza, seasonal, injectable Yoan Durham MD Work Phone: [facility] Work Phone: 03-28-2016 influenza, seasonal, injectable Yoan Durham MD Work Phone: [facility] Work Phone: 03-28-2015 tetanus toxoid, redu roxana diphtheria toxoid, and acellular pertussis vaccine, adsorbed Yoan Durham MD Work Phone: [facility] Work Phone: Payers Date Payer Category Payer Unknown [employer] [facility] [address] [id number] 2015-Present [address] [place] [address] [id number] Social History Date Type Detail Facility Start: 10-17-2014 Tobacco smoking stat [facility] Never smoked tobacco [facility] Work Phone: Start: 10-17-2014 Tobacco use and exposure Smokeless tobacco non-user [facility] Work Phone: Start: 08-02-2017 Alcohol intake Current drinke r of alcohol (finding) [facility] Work Phone: Start: 1955 Sex Assigned At Not on file [facility] Work Phone: Sex Assigned At [facility] History of Present illness Narrative 03-16-2021 ENRIKE Whitman CNP - 03/16/2021 9:00 AM EST Note Date & Type Note Facility 03-16-2021 History of Present illness Narrative Ordered treatment completed. Patient discharged without any issues, and verbalizes understanding. All questions answered. 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 ACP-Advance Directive ACP-Power of Military Professional Additional Source Comments INFORMATION SOURCE (unrecogn ized section and content) DATE CREATED AUTHOR AUTHOR'S ORGANIZ ATION 08/31/2017 [facility] DATE CREATED AUTHOR AUTHOR'S ORGANIZ ATION 05/10/2021 [facility] ([place]) DATE CREATED AUTHOR AUTHOR'S ORGANIZ ATION 09/26/2021 [facility] Care Teams (unrecognized sec tion and content) Application Security Architect Relationship Specialty Start Date End Date Kelley Garcia MD PCP - General 11/06/14 FOR RECORDS PERTAINING TO PATIENTS WHO ARE OR HAVE BEEN ENROLLED IN A CHEMICAL DEPENDENCY/SUBSTANCEABUSE PROGRAM, SOME INFORMATION MAY BE OMITTED. This clinical summary was aggregated from multiple sources. Caution should be exercised in using it in the provision of clinical care. This summary normalizes information from multiple sources, and as a consequence, information in this document may materially change the coding, format and clinical context of patient data. In addition, data may be omitted in some cases. CLINICAL DECISIONS SHOULD BE BASED ON THE PRIMARY CLINICAL RECORDS. [facility]. provides no warranty or guarantee of the accuracy or completeness of information in this document.
== END | disposition home or self-care (01) ==
LOC: OPBI 08:20
PROVIDERS: PCP Family Medicine; Referring Provider Family Medicine; Visit Provider Family Medicine
DX: Z12.31 Encounter for screening mammogram for malignant neoplasm of breast (principal)
CPT/HCPCS: 77063; 77067

== ENCOUNTER → 2023-06-13 | Outpatient (CLI) | payer MEDICARE, SELFPAY ==
[2023-06-13 10:45] LABS: Absolute Lymphocyte Count 1.48 X10^3/uL (0.83-4.51); Absolute Neutrophil Count 6.8 X10^3/uL (2.0-7.7); Basophil# 0.04 X10^3/uL; Basophil% 0.4 % (0-1); Eosinophil# 0.21 X10^3/uL; Eosinophils% 2.3 % (0-5); Hematocrit 38.5 % (37-47); Lymphocyte # 1.48 X10^3/ul (0.83-4.51); Lymphocyte % 16.5 % (19-41); Mean Corp Hgb Conc 33.8 g/dL (32-36); Mean Corpuscular Hgb 29.5 pg (27.0-32.0); Mean Corpuscular Volume 87.5 fL (81-99); Mean Platelet Vol. 9.8 fl (6.2-12.0); Monocyte% 4.5 % (0-10); NRBC Flagged by Analyzer 0 % (0-5); Neutrophil # 6.81 X10^3/uL (2.7-7.7); Neutrophil % 75.9 % (47-70); Platelet Count 296 K/mm3 (150-450); RBC Distribution Width CV 13.8 % (11.6-14.6); RBC Distribution Width SD 44.6 fl (35.1-43.9)
[2023-06-13 11:08] LABS: Vitamin D,25 Hydroxy 68.2 ng/mL
[2023-06-13 11:31] LABS: ALB/GLOB Ratio 1.2 RATIO (0.9-2.4); AST(SGOT) 13 U/L (15-37); Alanine Aminotransfer ALT/SGPT 13 U/L (13-56); Albumin, Serum 3.9 g/dL (3.2-5.0); Alkaline Phosphatase 90 U/L (45-117); Anion Gap 9 (5-15); BUN 13 mg/dL (7-18); BUN/Creat Ratio 19.8 RATIO (10-20); Calcium,Total 9.3 mg/dL (8.5-10.1); Chloride 105 mmol/L (98-107); Creatinine, Serum 0.66 mg/dL (0.55-1.02); EST Glomerular Filtration Rate 96 mL/min (>60); Est Glom Filt Rate - Afr Amer 116 mL/min (>60); Globulin 3.2 g/dL (2.2-4.2); Glucose 101 mg/dL (74-106); Potassium 3.8 mmol/L (3.5-5.1); Protein, Total 7.1 g/dL (6.4-8.2); Sodium Level 139 mmol/L (136-145); Thyroid Stim Hormone (TSH) 1.93 uIU/mL (0.358-3.74)
[2023-06-17 20:08] LABS: Immunoglobulin A 168 mg/dL (87-352); Immunoglobulin E 3 IU/mL (6-495); Immunoglobulin G 518 mg/dL (586-1602); Immunoglobulin M 65 mg/dL (26-217)
== END | disposition home or self-care (01) ==
LOC: MTLAB 09:22
PROVIDERS: PCP Family Medicine; Referring Provider Nurse Practitioner Gerontology; Visit Provider Nurse Practitioner Gerontology
DX: Z79.899 Other long term (current) drug therapy (principal); G35 Multiple sclerosis; E11.65 Type 2 diabetes mellitus with hyperglycemia; E55.9 Vitamin D deficiency, unspecified
CPT/HCPCS: 36415; 80053; 82306; 82784; 82785; 84443; 85025

== ENCOUNTER → 2023-06-15 | Outpatient (CLI) | payer MEDICARE, SELFPAY ==
[2023-06-15 10:32] LABS: Cholesterol 132 mg/dL (200); High Density Lipoprotein 46 mg/dL; Triglycerides 175 mg/dL; Very Low Density Lipoprotein 35 mg/dL (5-40)
== END | disposition home or self-care (01) ==
PROVIDERS: PCP Family Medicine; Referring Provider Family Medicine; Visit Provider Family Medicine
DX: E11.65 Type 2 diabetes mellitus with hyperglycemia (principal)
CPT/HCPCS: 36415; 80061

== ENCOUNTER → 2023-08-11 | Outpatient (CLI) | payer MEDICARE, SELFPAY ==
--- NOTE | 2023-08-11 15:33 | BD_ITS ---
STUDY: DUAL ENERGY X-RAY ABSORPTIOMETRY / DXA REASON FOR EXAM: Female, 67 years old. [id number] TECHNIQUE: Bone Mineral Density (BMD) measurements of lumbar spine and bilateral hips were obtained. COMPARISON: None. FINDINGS: Lumbar Spine (L1-L4): g/cm2 (1.189) / T-score (1.3) / Z-score (3.2) Findings are suggestive of normal bone density with a low fracture risk. Left Femur Total: g/cm2 (1.161) / T-score (1.8) / Z-score (3.1) Left Femoral Neck: g/cm2 (0.958) / T-score (1.0) / Z-score (2.6) Right Femur Total: g/cm2 (1.107) / T-score (1.4) / Z-score (2.7) Right Femoral Neck: g/cm2 (0.944) / T-score (0.9) / Z-score (2.5) BD/Dexa Bone Density Study IMPRESSION: The patient is considered normal as outlined below according to World [place] Organization (WHO) criteria with a low fracture risk. Reference Information: The T-score is the number of standard deviations above or below the standard which is normal for young adults at their peak bone mineral density. The World Health Organization (WHO) interprets the T-scores as follows: Above -1 Normal bone density Between -1 and -2.5 Osteopenia Equal to / or below -2.5 Osteoporosis As a practical clinical guideline, osteopenia may be graded as follows: Mild -1 through -1.5 Moderate -1.6 through -2.0 Severe -2.1 through -2.4 The Z-score is the number of standard deviations above or below age-matched controls. A Z-score of less than -1.5 would be considered abnormal. References: 1. NIH Osteoporosis and Related Bone Diseases www osteo.org 2. International Society for Clinical Densitometry www iscd.org 3. National Osteoporosis Foundation www nof.org Electronically Signed: Jefferson Guzman MD at 9:01 EDT ,
== END | disposition home or self-care (01) ==
LOC: OPBD 15:29
PROVIDERS: PCP Family Medicine; Referring Provider Family Medicine; Visit Provider Family Medicine
DX: Z00.00 Encounter for general adult medical examination without abnormal findings (principal); Z78.0 Asymptomatic menopausal state
CPT/HCPCS: 77080

== ENCOUNTER → 2023-10-10 | Outpatient (CLI) | payer MEDICARE, SELFPAY ==
[2023-10-10 15:42] LABS: Absolute Lymphocyte Count 1.64 X10^3/uL (0.83-4.51); Basophil# 0.07 X10^3/uL; Basophil% 0.8 % (0-1); Eosinophil# 0.25 X10^3/uL; Hematocrit 34.9 % (37-47); Hemoglobin 11.4 g/dL (12.0-15.0); Lymphocyte # 1.64 X10^3/ul (0.83-4.51); Lymphocyte % 19.4 % (19-41); Mean Corp Hgb Conc 32.7 g/dL (32-36); Mean Corpuscular Hgb 29.1 pg (27.0-32.0); Mean Platelet Vol. 9.7 fl (6.2-12.0); Monocyte# 0.34 X10^3/uL; NRBC Flagged by Analyzer 0 % (0-5); Neutrophil % 70.9 % (47-70); Platelet Count 306 K/mm3 (150-450); RBC Distribution Width CV 14.6 % (11.6-14.6); RBC Distribution Width SD 46.8 fl (35.1-43.9); Red Blood Count 3.92 M/mm3 (4.2-5.4); White Blood Count 8.5 K/mm3 (4.4-11.0)
[2023-10-10 15:56] LABS: Anion Gap 7 (5-15); BUN 10 mg/dL (7-18); Chloride 106 mmol/L (98-107); Creatinine, Serum 0.71 mg/dL (0.55-1.02); EST Glomerular Filtration Rate 87 mL/min (>60); Est Glom Filt Rate - Afr Amer 105 mL/min (>60); Glucose 126 mg/dL (74-106); Potassium 3.6 mmol/L (3.5-5.1); Sodium Level 143 mmol/L (136-145); Thyroid Stim Hormone (TSH) 1.56 uIU/mL (0.358-3.74)
[2023-10-11 11:16] LABS: RET-HE 32.8 pg (30-35); Reticulocyte Count 2.57 % (0.5-1.5)
[2023-10-11 11:23] LABS: Ferritin 273 ng/mL (8-252); Iron 55 ug/dL (50-170); Iron Binding Capacity,Total 249 ug/dL (250-450); PERCENT IRON SATURATION 22.1 % (15.0-55.0)
[2023-10-12 09:09] LABS: Erythrocyte Sedimentation Rate 12 mm/hr (0-30)
== END | disposition home or self-care (01) ==
LOC: MTLAB 12:53
PROVIDERS: PCP Family Medicine; Referring Provider Family Medicine; Visit Provider Family Medicine
DX: D64.9 Anemia, unspecified (principal); R63.1 Polydipsia
CPT/HCPCS: 36415; 80048; 82728; 83540; 83550; 84443; 85025; 85045; 85652

== ENCOUNTER → 2023-12-28 | Outpatient (CLI) | payer MEDICARE, SELFPAY ==
[2023-12-28 10:35] LABS: Absolute Lymphocyte Count 1.77 X10^3/uL (0.83-4.51); Absolute Neutrophil Count 5.7 X10^3/uL (2.0-7.7); Basophil# 0.05 X10^3/uL; Basophil% 0.6 % (0-1); Eosinophil# 0.25 X10^3/uL; Hematocrit 41.5 % (37-47); Hemoglobin 13.9 g/dL (12.0-15.0); Lymphocyte # 1.77 X10^3/ul (0.83-4.51); Lymphocyte % 21.3 % (19-41); Mean Corp Hgb Conc 33.5 g/dL (32-36); Mean Corpuscular Hgb 29.6 pg (27.0-32.0); Mean Corpuscular Volume 88.5 fL (81-99); Mean Platelet Vol. 9.8 fl (6.2-12.0); Monocyte# 0.49 X10^3/uL; Monocyte% 5.9 % (0-10); NRBC Flagged by Analyzer 0 % (0-5); Neutrophil % 68.5 % (47-70); Platelet Count 323 K/mm3 (150-450); RBC Distribution Width CV 13.5 % (11.6-14.6); RBC Distribution Width SD 43.8 fl (35.1-43.9); Red Blood Count 4.69 M/mm3 (4.2-5.4); White Blood Count 8.3 K/mm3 (4.4-11.0)
[2023-12-28 10:52] LABS: ALB/GLOB Ratio 1.2 RATIO (0.9-2.4); AST(SGOT) 14 U/L (15-37); Alanine Aminotransfer ALT/SGPT 22 U/L (13-56); Albumin, Serum 3.9 g/dL (3.2-5.0); Alkaline Phosphatase 104 U/L (45-117); Anion Gap 3 (5-15); BUN 10 mg/dL (7-18); BUN/Creat Ratio 15.4 RATIO (10-20); Calcium,Total 9.4 mg/dL (8.5-10.1); Chloride 103 mmol/L (98-107); Creatinine, Serum 0.65 mg/dL (0.55-1.02); EST Glomerular Filtration Rate 96 mL/min (>60); Est Glom Filt Rate - Afr Amer 117 mL/min (>60); Globulin 3.3 g/dL (2.2-4.2); Glucose 149 mg/dL (74-106); Potassium 4.3 mmol/L (3.5-5.1); Protein, Total 7.2 g/dL (6.4-8.2); Sodium Level 138 mmol/L (136-145)
[2023-12-29 12:09] LABS: Immunoglobulin G 544 mg/dL (586-1602)
== END | disposition home or self-care (01) ==
LOC: MTLAB 08:53
PROVIDERS: PCP Family Medicine; Referring Provider Nurse Practitioner Gerontology; Visit Provider Nurse Practitioner Gerontology
DX: Z79.899 Other long term (current) drug therapy (principal)
CPT/HCPCS: 36415; 80053; 82784; 85025

== ENCOUNTER → 2024-03-19 | Outpatient (CLI) | payer MEDICARE, SELFPAY ==
--- NOTE | 2024-03-19 08:59 | BI_ITS ---
MAMMOGRAPHY - BILATERAL SCREENING REASON FOR EXAM: Female, 68 years old. Routine annual screening examination. PERTINENT HISTORY: Mother with breast cancer. TECHNIQUE: Digital bilateral breast batsheva (3D mammographic acquisition) in the CC and MLO projections. 2-D mediolateral oblique (MLO) and craniocaudad (CC) views of both breasts were obtained. CAD: Full Field Digital Mammography with Computer Added Detection was performed. COMPARISON: Comparison is made with prior study dated March 04, 2023 and March 02, 2022. FINDINGS: Breast Composition: There are scattered areas of fibroglandular density. There are no dominant masses or suspicious calcifications. No other significant abnormalities are identified. There has been no significant change since the prior study. BI/SCRN MAMM (CAD)W/BATSHEVA BILAT IMPRESSION: Stable bilateral screening mammogram. Yearly follow-up mammogram recommended. (A) ASSESSMENT CATEGORY: BIRADS Category 1: Negative. A letter regarding these results will be sent to the patient by the facility within 30 days. Approximately 10% of breast cancers are not detected by mammography. A normal mammogram should not delay biopsy of a clinically suspicious abnormality. [id number] Electronically Signed: Jefferson Guzman MD at 10:55 EST ,
== END | disposition home or self-care (01) ==
LOC: OPBI 08:58
PROVIDERS: PCP Family Medicine; Referring Provider Family Medicine; Visit Provider Family Medicine
DX: Z12.31 Encounter for screening mammogram for malignant neoplasm of breast (principal)
CPT/HCPCS: 77063; 77067

== ENCOUNTER → 2024-07-31 | Outpatient (CLI) | payer MEDICARE, SELFPAY ==
[2024-07-31 12:20] LABS: Absolute Lymphocyte Count 1.84 X10^3/uL (0.83-4.51); Absolute Neutrophil Count 6.4 X10^3/uL (2.0-7.7); Basophil# 0.06 X10^3/uL; Basophil% 0.7 % (0-1); Eosinophil# 0.34 X10^3/uL; Eosinophils% 3.7 % (0-5); Hemoglobin 13.2 g/dL (12.0-15.0); Lymphocyte # 1.84 X10^3/ul (0.83-4.51); Mean Corpuscular Hgb 28.7 pg (27.0-32.0); Mean Platelet Vol. 9.8 fl (6.2-12.0); Monocyte# 0.51 X10^3/uL; Monocyte% 5.5 % (0-10); NRBC Flagged by Analyzer 0 % (0-5); Neutrophil # 6.37 X10^3/uL (2.7-7.7); Neutrophil % 69.3 % (47-70); Platelet Count 311 K/mm3 (150-450); RBC Distribution Width CV 13.7 % (11.6-14.6); RBC Distribution Width SD 43.2 fl (35.1-43.9); White Blood Count 9.2 K/mm3 (4.4-11.0)
[2024-07-31 12:45] LABS: ALB/GLOB Ratio 1.8 RATIO (0.9-2.4); AST(SGOT) 22 U/L (<=31); Alanine Aminotransfer ALT/SGPT 19 U/L (<=34); Albumin, Serum 4.5 g/dL (3.4-4.8); Alkaline Phosphatase 93 U/L (35-104); Anion Gap 12 (5-15); BUN 13 mg/dL (4-19); BUN/Creat Ratio 19.2 RATIO (10-20); Calcium,Total 9.7 mg/dL (7.6-11.0); Carbon Dioxide 26.7 mmol/L (21.0-32.0); Chloride 101 mmol/L (98-108); EST Glomerular Filtration Rate 95 (>60); Globulin 2.5 g/dL (2.2-4.2); Glucose 120 mg/dL (70-99); Potassium 4.5 mmol/L (3.3-5.1); Protein, Total 6.9 g/dL (5.9-8.4); Sodium Level 140 mmol/L (133-145); Total Bilirubin 0.31 mg/dL (0.00-1.30)
[2024-08-02 05:07] LABS: Immunoglobulin G 501 mg/dL (586-1602)
== END | disposition home or self-care (01) ==
LOC: MTLAB 09:44
PROVIDERS: PCP Family Medicine; Referring Provider Nurse Practitioner Gerontology; Visit Provider Nurse Practitioner Gerontology
DX: G35 Multiple sclerosis (principal); Z79.899 Other long term (current) drug therapy
CPT/HCPCS: 36415; 80053; 82784; 85025

== ENCOUNTER → 2024-11-08 | Outpatient (CLI) | payer MEDICARE, SELFPAY ==
[2024-11-08 13:09] LABS: Creatinine, Urine (random) 46.10 mg/dL (28.00-217.00); Microalbumin,Random Urine < 12.0 mg/L (<20 mg/L)
== END | disposition home or self-care (01) ==
LOC: MFPLAB 10:45
PROVIDERS: PCP Family Medicine; Visit Provider Family Medicine
DX: E11.65 Type 2 diabetes mellitus with hyperglycemia (principal)
CPT/HCPCS: 82043; 82570

== ENCOUNTER → 2025-02-04 | Outpatient (CLI) | payer MEDICARE, SELFPAY ==
[2025-02-04 12:24] LABS: Hematocrit 40.6 % (37-47); Hemoglobin 13.4 g/dL (12.0-15.0); Immature Granulocytes Count 0.050 X10^3/uL (0.0-0.0); Mean Corp Hgb Conc 33.0 g/dL (32-36); Mean Corpuscular Volume 90.0 fL (81-99); Mean Platelet Vol. 9.8 fl (6.2-12.0); NRBC Flagged by Analyzer 0 % (0-5); Platelet Count 304 K/mm3 (150-450); RBC Distribution Width CV 13.8 % (11.6-14.6); RBC Distribution Width SD 45.2 fl (35.1-43.9); Red Blood Count 4.51 M/mm3 (4.2-5.4); White Blood Count 7.7 K/mm3 (4.4-11.0)
[2025-02-04 13:47] LABS: AST(SGOT) 20 U/L (<=31); Alanine Aminotransfer ALT/SGPT 16 U/L (<=34); Albumin, Serum 4.4 g/dL (3.4-4.8); Alkaline Phosphatase 99 U/L (35-104); Anion Gap 11 (5-15); BUN 11 mg/dL (4-19); BUN/Creat Ratio 16.5 RATIO (10-20); Calcium,Total 9.4 mg/dL (7.6-11.0); Carbon Dioxide 28.6 mmol/L (21.0-32.0); Chloride 101 mmol/L (98-108); Globulin 2.5 g/dL (2.2-4.2); Glucose 123 mg/dL (70-99); Potassium 4.4 mmol/L (3.3-5.1); Vitamin D,25 Hydroxy 92.9 ng/mL (30-100)
[2025-02-05 08:08] LABS: Immunoglobulin G 502 mg/dL (586-1602)
== END | disposition home or self-care (01) ==
LOC: MTLAB 09:20
PROVIDERS: PCP Family Medicine; Referring Provider Nurse Practitioner Gerontology; Visit Provider Nurse Practitioner Gerontology
DX: G35.A Relapsing-remitting multiple sclerosis (principal); Z79.899 Other long term (current) drug therapy
CPT/HCPCS: 36415; 80053; 82306; 82784; 84443; 85025

== ENCOUNTER → 2025-02-08 | Outpatient (CLI) | payer MEDICARE, SELFPAY ==
[2025-02-08 12:46] LABS: Cholesterol 133 mg/dL (<=200); Low Density Lipoprotein Calc. 57 mg/dL; Triglycerides 187 mg/dL; Very Low Density Lipoprotein 37 mg/dL (5-40); cholesterol:hdl ratio screen 2.96
== END | disposition home or self-care (01) ==
LOC: MTLAB 09:05
PROVIDERS: PCP Family Medicine; Referring Provider Family Medicine; Visit Provider Family Medicine
DX: E78.5 Hyperlipidemia, unspecified (principal)
CPT/HCPCS: 36415; 80061